=== PATIENT | male | born 1940 | race Caucasian/White ===

== ENCOUNTER → 2016-04-30 | Day surgery (SDC) | payer OTHER ==
[~2016-04-30] VITALS: Ht 175.3 cm; Wt 81.6 kg
[~2016-04-30] MED LIST: ACETAMINOPHEN-1 EAC3 PO; ACID REDUCER150 MG PO; AMOX-CLAV 875-1 EACH PO; ASPIRIN81 M4 PO; BREO ELLIPTA 21 EACH INH; CITALOPRAM HBR20 MG PO; COUMADIN4 M1 PO; COUMADIN6 M1 PO; FLOMAX0.4 M1 PO; GAS RELIEF125 MG PO; LEVOTHYROXINE50 MCG PO; LISINOPRIL20 M1 PO; MAPAP500 M3 PO; NAPROXEN500 M2 PO; OMEPRAZOLE20 M2 PO; SIMVASTATIN10 M1 PO; VITAMIN B-121000 MC3 PO; VITAMIN D35000 UNI1 PO; ZOCOR20 M1 PO
--- NOTE | 2016-04-30 13:47 | Operative Report ---
Operative/Inv Procedure Report Surgery Date: 04/30/16 Name of Procedure: Pacemaker generator replacement Pre-Operative Diagnosis: Third degree heart block pacemaker end-of-life Post-Operative Diagnosis: Same Estimated Blood Loss: scant Surgeon/Patent Prosecution Paralegal: RAFITA DESAI,CARLEY Leone JR Anesthesia: local monitored anesthesi Operative/Procedure Note Note: After placement monitoring lines the patient's left chest was prepped and draped in a sterile fashion. 1% lidocaine was used local anesthetic. Incision was made over the prior incision and carried down to the pacemaker pocket. The device was explanted. The atrial lead was interrogated. The patient was found to be in complete third -degree heart block. The atrial lead showed a pacing threshold of 0.5 V with an impedance of 472 ohms. P waves were measured at 4.1 mV. The ventricular lead showed an escape rhythm of 30 bpm. The pacing threshold was at 1.0 V with a current of 1.9 mA and impedance of 686 ohms. R waves were measured at 8.0 mV. The leads were this we then disconnected and immediately connected to an MRI compatible dual-chamber pacemaker Med[employer]onic model number [id number]. The pacemaker pocket was irrigated with antibiotic irrigation. It was closed in layers with a running Vicryl suture followed by running Vicryl subcuticular suture. It was dressed with a dry sterile dressing. The patient heart of the procedure well and was brought to the recovery room in stable condition. CC: RADHA DESAI,ENRIQUE Hall
== END ==
LOC: SDA 04-27 07:00 → STS 03:03 → EDSTATUS 07:00 → SDA 07:00 → STS 07:00
DX: Z45.018 Encounter for adjustment and management of other part of cardiac pacemaker (principal); I49.5 Sick sinus syndrome; I44.2 Atrioventricular block, complete; E78.00 Pure hypercholesterolemia, unspecified; F17.200 Nicotine dependence, unspecified, uncomplicated; Z79.01 Long term (current) use of anticoagulants
CPT/HCPCS: C1785; J0690; J1644; J2250

== ENCOUNTER 2016-05-16 17:48 | Emergency (ER) | payer OTHER ==
[~2016-05-16] VITALS: Ht 175.3 cm; Wt 81.6 kg
[~2016-05-16 17:48] MED LIST changes: -ACETAMINOPHEN-1 EAC3 PO; -AMOX-CLAV 875-1 EACH PO; -ASPIRIN81 M4 PO; -CITALOPRAM HBR20 MG PO; -COUMADIN6 M1 PO; -GAS RELIEF125 MG PO; -LISINOPRIL20 M1 PO; -MAPAP500 M3 PO; -NAPROXEN500 M2 PO; -OMEPRAZOLE20 M2 PO; -SIMVASTATIN10 M1 PO; -VITAMIN B-121000 MC3 PO; -VITAMIN D35000 UNI1 PO
--- NOTE | 2016-05-16 17:57 | ED AMS/SEIZURE/WEAK/DIZZY ---
History of Present Illness General Chief Complaint: Upper Extremity Problem Stated Complaint: BIBA ARM, SHOULDER PAIN Source: patient, EMS Exam Limitations: no limitations Vital Signs & Intake/Output Vital Signs & Intake/Output Vital Signs Date Time Temp Pulse Resp B/P Pulse O2 O2 Flow FiO2 Ox Delivery Rate 05/16 2108 96.7 70 18 124/65 95 Room Air 05/16 2035 121/68 95 Room Air 05/16 1932 63 20 126/56 95 Room Air 05/16 1833 Room Air 05/16 1819 90 20 90/53 93 Room Air 05/16 1805 97.5 68 18 101/54 98 Room Air ED Intake and Output 05/17 0000 05/16 1200 Intake Total 2000 Output Total Balance 2000 Intake, IV 2000 Patient 180 lb Weight Allergies Coded Allergies: No Known Allergies (06/08/15) Reconcile Medications Acetaminophen (Mapap Arthritis Pain) 650 MG TABLET.ER 1 TAB PO PRN PAIN ( Reported) Acetaminophen With Codeine (Acetaminophen-Cod #3 Tablet) 300 MG-30 MG TABLET 1 -2 TAB PO Q4H PRN PAIN (Reported) Cholecalciferol (Vitamin D3) (Vitamin D3) (Unknown Strength) CAPSULE (Unknown Dose) PO DAILY SUPPLEMENT (Reported) Citalopram Hydrobromide (Citalopram HBr) 20 MG TABLET 1 TAB PO DAILY MENTAL HEALTH (Reported) Cyanocobalamin (Vitamin B-12) (Unknown Strength) TABLET (Unknown Dose) PO DAILY SUPPLEMENT (Reported) Fluticasone/Vilanterol (Breo Ellipta 200-25 Mcg INH) (Unknown Strength) BLST.W.DEV (Unknown Dose) INH DAILY COPD (Reported) Levothyroxine Sodium 50 MCG TABLET 1 TAB PO DAILY THYROID (Reported) Lisinopril 20 MG TABLET 1 TAB PO DAILY BP (Reported) Ranitidine HCl (Acid [place]) 150 MG TABLET 1 TAB PO BID GERD (Reported) Simvastatin (Simvastatin*) 10 MG TABLET 1 TAB PO QPM CHOLESTEROL (Reported) Tamsulosin HCl (Flomax) 0.4 MG CAP.ER.24H 1 CAP PO DAILY BPH (Reported) Warfarin Sodium (Coumadin) 4 MG TABLET 1 TAB PO AD BLOOD THINNER (Reported) Warfarin Sodium (Coumadin) 6 MG TABLET 1 TAB PO AD BLOOD THINNER (Reported) Triage Nurses Notes Reviewed? yes Onset: Abrupt Duration: constant Timing: single episode today Severity: moderate Severity Numbers: 5 HPI: Patient is a 76-year-old male with a past medical history of pacemaker placement , DVT which patient states that he has an IVC filter, hypothyroidism, hyperlipidemia and hypertension, COPD every day smoker not on home O2 who states that patient did not go to bed until 8 AM this morning he woke up at 3 PM today and he was feeling tired after he woke up a which 30 minutes prior to arrival patient states that after only having a couple coffee today he was going upstairs to go back to bed in which he felt lightheaded and dizzy where he immediately sat down and felt nauseous and called EMS. Patient is compliant with his medications. Patient states that at rest he has no complaints. Denies any fevers chills headache blurred vision facial droop shortness of breath chest pain and arm pain jaw pain like swelling hemoptysis. Denies any loss of consciousness denies any room spinning sensation. Patient does state that he's been C/O "pinched nerve" for the last 10 days and a stiff neck. Denies any extremity paresthesia weakness or pain On arrival fingerstick glucose was noted 112 101/54 was noted on initial blood pressure (GABE AHUMADA) Past History Travel History Traveled to [place] past 21 day No Medical History Any Pertinent Medical History? see below for history Other Medical Hx: Hypothyroidism, hypertension, hyperlipidemia Surgical History Surgical History: non-contributory Psychosocial History What is your primary language Slovenian Family History Hx Contributory? No (GABE AHUMADA) Review of Systems Review of Systems Constitutional: Reports: no symptoms. EENTM: Reports: no symptoms. Respiratory: Reports: no symptoms. Cardiovascular: Reports: no symptoms. GI: Reports: no symptoms. Genitourinary: Reports: no symptoms. Musculoskeletal: Reports: see HPI, neck pain. Skin: Reports: no symptoms. Neurological/Psychological: Reports: no symptoms. Hematologic/Endocrine: Reports: no symptoms. Immunologic/Allergic: Reports: no symptoms. All Other Systems: Reviewed and Negative (GABE AHUMADA) Physical Exam Physical Exam General Appearance: no apparent distress, alert, comfortable Comments: Well-developed well-nourished person in no acute distress HEENT: Normal EENT exam, extraocular motion intact, no nystagmus. Pupils equally round and reactive to light and accommodation. Nose is atraumatic. External auditory canal and Tympanic membranes clear. Pharynx normal. No swelling or edema. Neck: Right lateral muscular tenderness noted, decreased active range of motion noted no central spinous tenderness Back: Nontender, no CVA tenderness. Cardiovascular: Regular rate and rhythms no murmurs rubs or gallops, normal JVP Respiratory: Chest nontender. No respiratory distress.breath sounds clear to auscultation bilaterally Abdomen: Soft, nontender nondistended, no appreciable organomegaly. Normal bowel sounds. No ascites Extremity: No edema, no calf tenderness to palpation, normal and equal pulses. Bilateral upper extremity myotomes dermatomes intact Neuro: Alert oriented x3, motor sensory normal, cranial nerves II through XII grossly intact. Negative Brudzinski and negative Kernig sign Skin: No appreciable rash on exposed skin, skin is warm and dry. Psych: Mood and affect is normal, memory and judgment is normal. Core Measures ACS in differential dx? No CVA/TIA Diagnosis: No Severe Sepsis Present: No Septic Shock Present: No (BRADY BISHOP,GABE) Progress Differential Diagnosis: arrythmia, alcohol intoxication, anemia, benign positional vertigo, CVA/stroke, dehydration, drug intoxication, encephalitis, electrolyte imbalance, GI bleed, hypoglycemia, hypoxia, intracranial Hem., intracranial mass/tumor, labrynthitis, meningitis, Meniere's disease, migraine BROWNLEE, multiple sclerosis, pneumonia, postural hypotension, presyncope, post- traumatic vertigo, sepsis, seizure disorder, subarachnoid Hem., UTI/pyelo, vertebrobasilar insuff Plan of Care: Orders Procedure Date/time Status Add-on Test (ER Only) 05/16 1905 Active TROPONIN LEVEL 05/16 1810 Complete MISTAKE 05/16 1757 Active Telemetry/Painter Structural Steel 05/16 175 Active THYROID STIMULATING HORMONE 05/16 1757 Complete PARTIAL THROMBOPLASTIN TIME 05/16 175 Complete PROTHROMBIN TIME 05/16 175 Complete MAGNESIUM 05/16 175 Complete FREE T4 05/16 175 Complete COMPREHENSIVE METABOLIC PANEL 05/16 1757 Complete CBC WITHOUT DIFFERENTIAL 05/16 1757 Complete EKG 05/16 1757 Active Laboratory Tests 05/16/16 181: Anion Gap 10, Estimated GFR > 60, BUN/Creatinine Ratio 27.3 H, Glucose 116 H, Calcium 9.1, Magnesium 1.7, Total Bilirubin 0.6, AST 24, ALT 32, Alkaline Phosphatase 71, Troponin I < 0.01, Total Protein 6.6, Albumin 3.6, Globulin 3.0, Albumin/Globulin Ratio 1.2, TSH 2.920, Free T4 1.29, PT 46.3 *H, INR 4.48 *H, APTT 42 H, CBC w Diff NO MAN DIFF REQ, RBC 4.21 L, MCV 88.3, MCH 29.0, RDW 14.7 H, MPV 7.6, Gran % 86.2 H, Lymphocytes % 7.8 L, Monocytes % 4.7, Eosinophils % 0.9, Basophils % 0.4, Absolute Granulocytes 6.8 H, Absolute Lymphocytes 0.6 L, Absolute Monocytes 0.4, Absolute Eosinophils 0.1, Absolute Basophils 0, PUBS MCHC 32.9 L Patient initially was in no apparent distress. Patient did have initial concerns of hypotension and orthostatic hypotension. Patient was administered 2 L of fluid bolus for concerns of dehydration and patient also was given a meal in the emergency room. Patient had unremarkable blood work and blood pressure did respond with fluids. Patient was evaluated again after this medication was administered and was able to walk to the emergency room bathroom and was asymptomatic and blood pressure was normotensive. Patient was strongly advised and instructed to begin eating and drinking properly and to begin getting plenty of sleep for his physical mental health. Patient was able tolerate by mouth on discharge. Discussed disposition plan with Dr. Pastrana who agrees. I discussed plan with family members and they also agree with plan (BRADY BISHOP,GABE) Diagnostic Imaging: Viewed by Me: Radiology Read. Radiology Impression: no acute abnormality, no fracture Initial ED EKG: normal intervals, ATRIAL PACED RHYTHM NOTED AT 63 BPM Comments: PATIENT: GABE WOOD PRESENT AGE: 76 PATIENT ACCOUNT NO: [id number] : 39 LOCATION: [facility] ORDERING PHYSICIAN: GABE BISHOP SERVICE DATE: 05/16/16 EXAM TYPE: RAD - XRY-PORTABLE CHEST XRAY EXAMINATION: XR PORTABLE CHEST CLINICAL INFORMATION: Dizziness. COMPARISON: Chest x-ray 04/29/2016. TECHNIQUE: Portable AP view of the chest was obtained. FINDINGS: The lungs are well-expanded and clear without focal airspace consolidation. No pleural effusions or pneumothoraces are identified. Cardiomediastinal contours are within normal limits. There is a left chest wall cardiac pacemaker with leads identified in the expected region of the right atrium and right ventricle. Soft tissues are unremarkable. No acute osseous abnormality is identified. IMPRESSION: No acute pulmonary process. (GABE AHUMADA) Departure Departure Disposition: HOME OR SELF CARE Condition: Stable Clinical Impression Primary Impression: Dizziness Secondary Impressions: Dehydration Referrals: KATJA DESAI,MARK Gonzalez (PCP/Family) Additional Instructions: As discussed please skip your next dose of Coumadin as her levels were high today in the emergency room. Please begin to drink plenty of water for hydration and begin EATING a well healthy balanced diet. Begin getting plenty of sleep. If symptoms worsen return to emergency room. Follow-up with your primary care doctor as YOU HAVE an appointment next week. Continue home medications otherwise Departure Forms: Customer Survey General Discharge Information (GABE AHUMADA) PA/HAM PASSER Co-Sign Statement Statement: ED Attending supervision documentation- [X] I saw and evaluated the patient. I have also reviewed all the pertinent lab results and diagnostic results. I agree with the findings and the plan of care as documented in the PA's/HAM PASSER's documentation. [] I have reviewed the ED Record and agree with the PA's/HAM PASSER's documentation. [] Additions or exceptions (if any) to the PAs/HAM PASSER's note and plan are summarized below: [] (KATHERYN DESAI,ARIADNA Olivo)
[2016-05-16 18:19] LABS: ABSOLUTE BASOPHIL COUNT 0 /CUMM (0.0-0.2); ABSOLUTE EOSINOPHIL COUNT 0.1 /CUMM (0.0-0.7); ABSOLUTE GRANULOCYTE CT 6.8 /CUMM (1.4-6.5); ABSOLUTE LYMPH COUNT 0.6 /CUMM (1.2-3.4); ABSOLUTE MONOCYTE COUNT 0.4 /CUMM (0.10-0.60); BASOPHIL % 0.4 % (0.0-2.0); EOSINOPHIL % 0.9 % (0-5); HEMATOCRIT 37.2 % (42-52); MEAN CORPUSCULAR HGB CONC 32.9 G/DL (33.0-37.0); MEAN CORPUSCULAR VOLUME 88.3 FL (80.0-94.0); MEAN PLATELET VOLUME 7.6 FL (7.4-10.4); PLATELET COUNT 213 /CUMM (130-400); RBC DISTRIBUTION WIDTH 14.7 % (11.5-14.5); RED BLOOD CELL CT 4.21 /CUMM (4.70-6.10); WHITE BLOOD CELL COUNT 7.9 /CUMM (4.8-10.8)
[2016-05-16 18:27] LABS: PTT 42 SEC (25-37)
[2016-05-16 18:33] LABS: PT 46.3 SEC (9.4-12.5)
[2016-05-16 18:36] LABS: GRANULOCYTE % 86.2 % (42.2-75.2)
[2016-05-16] MEDS ORDERED: COUMADIN6 M1 PO (18:48)
[2016-05-16] MEDS ORDERED: VITAMIN B-121000 MC3 PO (18:48)
[2016-05-16] MEDS ORDERED: VITAMIN D35000 UNI1 PO (18:48)
[2016-05-16] MEDS ORDERED: MAPAP500 M3 PO (18:49)
[2016-05-16] MEDS ORDERED: CITALOPRAM HBR20 MG PO (18:50)
[2016-05-16] MEDS ORDERED: ACETAMINOPHEN-1 EAC3 PO (18:51)
[2016-05-16] MEDS ORDERED: SIMVASTATIN10 M1 PO (18:52)
[2016-05-16] MEDS ORDERED: GAS RELIEF125 MG PO (18:53)
--- NOTE | 2016-05-16 20:18 | RADIOLOGY REPORT ---
EXAMINATION: XR PORTABLE CHEST CLINICAL INFORMATION: Dizziness. COMPARISON: Chest x-ray 04/29/2016. TECHNIQUE: Portable AP view of the chest was obtained. FINDINGS: The lungs are well-expanded and clear without focal airspace consolidation. No pleural effusions or pneumothoraces are identified. Cardiomediastinal contours are within normal limits. There is a left chest wall cardiac pacemaker with leads identified in the expected region of the right atrium and right ventricle. Soft tissues are unremarkable. No acute osseous abnormality is identified. IMPRESSION: No acute pulmonary process.
[2016-05-16 21:09] VITALS: BP 124/65
== END 2016-05-16 21:45 ==
LOC: ERH 17:48
PROVIDERS: Physician Assistant
DX: E86.0 Dehydration (principal); Z79.01 Long term (current) use of anticoagulants
CPT/HCPCS: 93005; 93010; 96360

== ENCOUNTER 2016-06-15 09:59 | Inpatient (IN) | payer OTHER ==
[~2016-06-15] VITALS: Ht 175.3 cm; Wt 81.0 kg
[~2016-06-15 09:59] MED LIST changes: +ACETAMINOPHEN-1 EAC3 PO; +CITALOPRAM HBR20 MG PO; +COUMADIN6 M1 PO; +GAS RELIEF125 MG PO; +MAPAP500 M3 PO; +SIMVASTATIN10 M1 PO; +VITAMIN B-121000 MC3 PO; +VITAMIN D35000 UNI1 PO
--- NOTE | 2016-06-15 10:01 | ED GENERAL ADULT ---
See Addendum History of Present Illness General Chief Complaint: General Adult Stated Complaint: BIBA GEN WEAKNESS Source: patient, family Exam Limitations: poor historian Vital Signs & Intake/Output Vital Signs & Intake/Output Vital Signs Date Time Temp Pulse Resp B/P Pulse O2 O2 Flow FiO2 Ox Delivery Rate 06/15 2052 93 Nasal 2.0L Cannula 06/16 2019 97.0 83 20 148/82 93 Nasal 2.0L Cannula 06/15 1926 99.6 81 20 131/62 94 Nasal 2.0L Cannula 06/15 1820 80 22 145/68 93 Nasal 2.0L Cannula 06/15 1602 98.9 79 18 141/68 92 Room Air 06/15 1357 98.7 85 20 131/61 93 Nasal 2.0L Cannula 06/15 1108 97.8 74 18 134/70 96 Room Air 06/15 1023 96 Room Air 06/15 1005 98.0 77 20 132/65 96 Room Air Allergies Coded Allergies: No Known Allergies (06/08/15) Reconcile Medications Acetaminophen (Mapap) 500 MG TABLET 2 TAB PO Q6-PRN PRN PAIN (Reported) Cholecalciferol (Vitamin D3) (Vitamin D3) 5,000 UNIT TABLET 1 TAB PO DAILY SUPPLEMENT (Reported) Citalopram Hydrobromide (Citalopram HBr) 20 MG TABLET 1 TAB PO DAILY MENTAL HEALTH (Reported) Cyanocobalamin (Vitamin B-12) 1,000 MCG TABLET 1 TAB PO DAILY SUPPLEMENT ( Reported) Fluticasone/Vilanterol (Breo Ellipta 200-25 Mcg INH) (Unknown Strength) BLST.W.DEV (Unknown Dose) INH DAILY COPD (Reported) Levothyroxine Sodium 50 MCG TABLET 1 TAB PO DAILY AC THYROID (Reported) Lisinopril 20 MG TABLET 1 TAB PO DAILY BP (Reported) Ranitidine HCl (Acid Coffee Host) 150 MG TABLET 1 TAB PO BID GERD (Reported) Simvastatin (Simvastatin*) 10 MG TABLET 1 TAB PO QPM CHOLESTEROL (Reported) Tamsulosin HCl (Flomax) 0.4 MG CAP.ER.24H 1 CAP PO DAILY BPH (Reported) Warfarin Sodium (Coumadin) 4 MG TABLET 1 TAB PO AD BLOOD THINNER (Reported) Triage Nurses Notes Reviewed? yes Onset: Abrupt Duration: day(s): Timing: recent history HPI: 06/15/16 2 PM 76-year-old man presents to the emergency department complaining of severe bilateral groin pain The patient states he has right sided groin pain that is worse than the left. He also admits to severe weakness and chills and occasional cough. The onset of the symptoms have been abrupt, the duration has been several days, the severity is significant as his symptoms required him to come to the emergency department for care. He has a past medical history of COPD, DVT, status post vena cava filter. He has been intolerant from anticoagulants in the past. He has a history of prostate cancer. Status post radiation January through March 2016. He has peripheral artery disease and is status post bilateral femoropopliteal bypass right 2004 according to the patient's . Past History Travel History Traveled to [place] past 21 day No Medical History Any Pertinent Medical History? see below for history Neurological: NONE EENT: NONE Cardiovascular: CAD, hypertension, hyperlipidemia, myocardial infarction, PPM Respiratory: COPD Gastrointestinal: GERD Hepatic: NONE Renal: NONE Musculoskeletal: osteoarthritis Psychiatric: NONE Endocrine: hyperthyroidism Blood Disorders: NONE Cancer(s): prostate cancer Other Medical Hx: Hypothyroidism, hypertension, hyperlipidemia Surgical History Surgical History: non-contributory Psychosocial History What is your primary language Occitan Family History Hx Contributory? No Review of Systems Review of Systems Constitutional: Reports: fever. EENTM: Denies: visual changes. Respiratory: Reports: cough. Denies: short of breath. Cardiovascular: Denies: chest pain. GI: Denies: abdominal pain. Genitourinary: Reports: no symptoms. Musculoskeletal: Reports: no symptoms. Skin: Reports: no symptoms. Neurological/Psychological: Reports: no symptoms. Hematologic/Endocrine: Denies: bleeding. Physical Exam Physical Exam General Appearance: well developed/nourished ( ), alert, awake, anxious, moderate distress Head: atraumatic, normal appearance Eyes: Bilateral: normal appearance, PERRL, EOMI. Ears, Nose, Throat: normal pharynx, normal ENT inspection Neck: normal inspection, supple, full range of motion Respiratory: chest non-tender, decreased breath sounds Cardiovascular: regular rate/rhythm Peripheral Pulses: 4+ dorsalis pedis (R), 4+ dorsalis pedis (L) Gastrointestinal: soft, non-tender Back: normal range of motion Extremities: swelling, tenderness Neurologic/Psych: no motor/sensory deficits, awake, alert, oriented x 3 Skin: intact, normal color, warm/dry Core Measures ACS in differential dx? Yes ASA ordered for poss ACS? no chest pain, patient with recent intracranial bleed, on Coumadin, troponin trending downward. These reasons aspirin was not given. CVA/TIA Diagnosis: No Severe Sepsis Present: No Septic Shock Present: No Progress Differential Diagnoses I considered the following diagnoses in my evaluation of the patient: [Pneumonia , sepsis, DVT, peripheral vascular disease, acute arterial occlusion] Plan of Care: Orders Procedure Date/time Status Heart Healthy Diet 06/16 B Active Lab Add-on Test 06/16 06 Active RHEUMATOID FACTOR 06/16 06 Active PROTHROMBIN TIME 06/16 0600 Active WESTERGREN SED RATE 06/16 0600 Active CREATINE PHOSPHOKINASE 06/16 0600 Active CBC WITHOUT DIFFERENTIAL 06/16 0600 Active BASIC ELECTROLYTES PLUS BUN&CR 06/16 0600 Active ANTINUCLEAR ANTIBODY 06/16 0600 Active Vital Signs 06/16 2051 Active Teach/Educate 06/16 2051 Active Pain Treatment and Response 06/16 2051 Active Nutritional Intake, Monitor 06/16 2051 Active Isolation 06/16 2051 Active Patient Care Conference 06/16 2051 Active Activity/Ambulation 06/16 2051 Active Pathway - chart 06/15 2021 Active Pathway - chart 06/15 193 Active House Staff 06/15 1932 Active Patient Data 06/15 1932 Active Code Status 06/15 1932 Active Patient Data 06/15 1800 Active Add-on Test (ER Only) 06/15 1741 Active Code Status 06/15 1730 Complete Admit to inpatient 06/15 1729 Active US-EXT BILAT VENOUS DOPPLER 06/15 1352 Active RAPID VIRAL INFLUENZA A 06/15 1349 Complete BLOOD CULTURE 06/15 1322 Active URINALYSIS 06/15 1222 Complete PROTHROMBIN TIME 06/15 1057 Complete PHOSPHORUS 06/15 1057 Active MAGNESIUM 06/15 1057 Active FERRITIN 06/15 1057 Active SERUM IRON 06/15 1057 Active CREATINE PHOSPHOKINASE 06/15 1057 Active TROPONIN LEVEL 06/15 1053 Active COMPREHENSIVE METABOLIC PANEL 06/15 1053 Active CBC WITHOUT DIFFERENTIAL 06/15 1053 Complete EKG 06/15 1016 Active Intake & Output 06/15 1011 Active Lab Add-on Test 06/15 UNK Active VTE Mechanical Prophylaxis 06/15 UNK Active CTA CHEST-PULMONARY EMBOLISM 06/15 UNK Active Current Medications Sig/Annabel Start time Last Medication Dose Stop Time Status Admin Sodium Chloride 1,000 ML Q13H 06/15 2214 UNVr (Normal Saline 0.9%) 06/16 111 Ibuprofen 600 MG Q6P PRN 06/15 2029 AC (Motrin) Oxycodone/ 1 TAB Q6P PRN 06/15 2029 AC Acetaminophen (Percocet) Laboratory Tests 06/15/16 1242: Urine Color YEL, Urine Clarity CLEAR, Urine pH 6.0, Ur Specific [place] 1.015, Urine Protein NEG, Urine Ketones NEG, Urine Nitrite NEG, Urine Bilirubin NEG, Urine Urobilinogen 0.2, Ur Leukocyte Esterase NEG, Ur Microscopic SEDIMENT EXAMINED, Urine RBC 3-5, Urine Mucus FEW, Urine Hemoglobin SMALL H, Urine Glucose NEG 06/15/16 1057: Anion Gap 10, Estimated GFR > 60, BUN/Creatinine Ratio 20.0, Glucose 107 H, Calcium 9.0, Phosphorus Pending, Magnesium Pending, Iron Pending, Ferritin Pending, Total Bilirubin 0.6, AST 56, ALT 74 H, Alkaline Phosphatase 68, Creatine Kinase Pending, Troponin I < 0.01, Total Protein 6.0 L, Albumin 3.0 L , Globulin 3.0, Albumin/Globulin Ratio 1.0 L, PT 46.1 *H, INR 4.46 *H, CBC w Diff NO MAN DIFF REQ, RBC 3.85 L, MCV 84.8, MCH 27.8, RDW 15.0 H, MPV 7.8, Gran % 82.7 H, Lymphocytes % 8.1 L, Monocytes % 8.4, Eosinophils % 0.5, Basophils % 0.3, Absolute Granulocytes 8.7 H, Absolute Lymphocytes 0.8 L, Absolute Monocytes 0.9 H, Absolute Eosinophils 0.1, Absolute Basophils 0, PUBS MCHC 32.7 L Microbiology 06/15 1607 BLOOD: Blood Culture - RECD 06/15 1607 BLOOD: Blood Culture - RECD 06/15 1421 NASOPHARYN: Influenza Virus A & B Rapid Smear - COMP Initial ED EKG: PACED RHYTHM Prior EKG: unchanged Departure Departure Disposition: STILL A PATIENT Condition: Stable Clinical Impression Primary Impression: DVT (deep venous thrombosis) Secondary Impressions: Pneumonia Referrals: MARK HIGHTOWER MD (PCP/Family) Departure Forms: Customer Survey General Discharge Information Admission Note Spoke With: CESAR NGUYEN MD Documentation of Exam: Documentation of any treatments & extenuating circumstances including Concerns Regarding Discharge (functional status, medication knowledge or non-compliance, living conditions, etc.) that warrant an admission rather than observation: [The patient has fever chills and inability to walk. His chest x-ray shows early infiltrate. He has an extensive right sided DVT. He is being admitted to the hospital for inability to walk, the need for vascular surgery consult, likely IV heparinization, IV antibiotics.] Critical Care Note Critical Care Note Critical Care Time: 30-74 min
--- NOTE | 2016-06-15 10:26 | NUR ---
76 YEAR OLD MALE TO ER VIA AMBULANCE FROM HIS HOME FOR COMPLAINTS OF INCREASED JOINT PAIN, PT COMPLAINS OF 10/10 SHARP APIN IN HIS SHOULDERS .ELBOWS KNEES. PT NOTED WITH MULTIPLE LAYERS OF CLOTHES ON , CHANGED BY STAFF AND PT SCREAMING IN PAIN THE WHOLE TIME , PT NOTED WITH EDEMA TO L HAND AND NOTED TO BE SOB WHEN STAFF MOVING HIM. PT STATES THAT HE HAS AN APPOINTMENT TOMORROW WITH VASCULAR BUT IT IS GOING TO SNOW AND IT WILL BE CANCELLED. STTAES THAT SHE WANTS HIM ADMITTED THAT HE IS IN TO MUCH PAIN AND THAT SHE HAS TO HELP HIM STAND. ALSO STATES THAT PT HAS BEEN URINATING EVERY TWO HOURS AND COMPLAINS OF GROIN PAIN.
--- NOTE | 2016-06-15 11:05 | NUR ---
URINAL PLACED , PT TRYING TO VOID AT THIS TIME, PT BOOSTED UP ON STRETCHER, VERY DIFFICULT TO TURN WITH OUT PT YELLING IN PAIN. REMAINS AT BEDSIDE. PT WAITING ON MD EVALUATION. PACED ON MONITOR. PACE MAKER TO L CHEST WALL
[2016-06-15 11:20] LABS: ABSOLUTE BASOPHIL COUNT 0 /CUMM (0.0-0.2); ABSOLUTE EOSINOPHIL COUNT 0.1 /CUMM (0.0-0.7); ABSOLUTE GRANULOCYTE CT 8.7 /CUMM (1.4-6.5); ABSOLUTE LYMPH COUNT 0.8 /CUMM (1.2-3.4); ABSOLUTE MONOCYTE COUNT 0.9 /CUMM (0.10-0.60); BASOPHIL % 0.3 % (0.0-2.0); EOSINOPHIL % 0.5 % (0-5); GRANULOCYTE % 82.7 % (42.2-75.2); HEMATOCRIT 32.7 % (42-52); MEAN CORPUSCULAR HGB 27.8 PG (27.0-31.0); MEAN CORPUSCULAR HGB CONC 32.7 G/DL (33.0-37.0); MEAN CORPUSCULAR VOLUME 84.8 FL (80.0-94.0); MEAN PLATELET VOLUME 7.8 FL (7.4-10.4); PLATELET COUNT 321 /CUMM (130-400); RED BLOOD CELL CT 3.85 /CUMM (4.70-6.10); WHITE BLOOD CELL COUNT 10.5 /CUMM (4.8-10.8)
--- NOTE | 2016-06-15 12:43 | NUR ---
URINE TRIO SENT TO THE LAB
--- NOTE | 2016-06-15 12:45 | NUR ---
PT NOTED TO BE SLEEPING AT THIS TIME, REGULAR RESP RATE NOTED .
--- NOTE | 2016-06-15 13:58 | NUR ---
PT RESTING ON STRETCHER, AWARE THAT HE IS GOING TO BE ADMITTED, O2 SAT 89 % ON RA, PLACED ON 2L VIA NC AND SATURATION INCREASED TO 93 % . PT DENIES PAIN WHEN HE IS NOT MOVING. PROVIDED WITH BLANKETS FOR COMPLAINTS OF FEELING COLD, AFEBRILE TEMP 98.7. SPOUSE REMAINS AT BEDSIDE
--- NOTE | 2016-06-15 14:24 | NUR ---
FLU SWAB SENT, PT TO CT SCAN AT THIS TIME
--- NOTE | 2016-06-15 14:46 | NUR ---
PT TO US VIA STRETCHER
--- NOTE | 2016-06-15 15:15 | NUR ---
REPORT RECIEVED FROM ARMIN LAGUNAS. PT OFF UNIT IN ULTRASOUND
--- NOTE | 2016-06-15 15:20 | RADIOLOGY REPORT ---
EXAMINATION: XR PORTABLE CHEST CLINICAL INFORMATION: Weakness. Rule out pneumonia. COMPARISON: Chest radiograph dated 04/29/2016. TECHNIQUE: Portable AP view of the chest was obtained. FINDINGS: The left chest wall pacemaker leads are stable in position. The cardiac silhouette is unchanged in size and configuration. There is uncoiling and atherosclerotic calcification of the thoracic aorta. The left lung is clear. There is patchy airspace opacity within the right lower lung. Developing pneumonia cannot be excluded. No pneumothorax or pleural effusion. IMPRESSION: Right lower lung patchy airspace opacities. Developing pneumonia cannot be excluded.
--- NOTE | 2016-06-15 15:37 | NUR ---
PT RETURNED FROM ULTRASOUND. AWAKE, ALERT. USING URINAL
--- NOTE | 2016-06-15 16:09 | CT SCAN REPORT ---
EXAMINATION: CT ABDOMEN AND PELVIS WITH CONTRAST CLINICAL INFORMATION: Severe pelvic pain. Prostate cancer. COMPARISON: None TECHNIQUE: Multidetector volumetric imaging was performed of the abdomen and pelvis before and after the IV administration of 95 mL of Optiray 320 intravenous contrast. Sagittal and coronal reformatted images were obtained on the technologist's workstation. DLP: 589.89 mGy-cm FINDINGS: LUNG BASES: Bibasilar airspace disease at the dependent lung of dependent atelectasis. Pacemaker lead at base of right ventricle. Vascular wall calcifications of the aorta. LIVER, GALLBLADDER, AND BILIARY TREE: The liver is normal in size, shape, and attenuation. No focal hepatic lesion or biliary ductal dilatation is present. The gallbladder is unremarkable with no evidence of radiopaque gallstones, gallbladder wall thickening, or obvious pericholecystic inflammatory changes. PANCREAS: Unremarkable. SPLEEN: Unremarkable. ADRENAL GLANDS: Unremarkable. KIDNEYS AND URETERS: 7 mm cortical cyst upper pole of the left kidney. 8 mm pedunculated cortical cyst at the anterior pole of the left kidney. No renal or ureteral calculi. No hydronephrosis. BLADDER: Unremarkable. GASTROINTESTINAL TRACT: Diverticulosis of the left colon and sigmoid. No diverticulitis. No bowel wall thickening or edema. Moderate to large volume of stool throughout the colon. The appendix is normal. Small bowel loops are unremarkable. ABDOMINAL WALL: No significant hernia is appreciated. LYMPH NODES: Normal. VASCULAR: Atherosclerotic vascular wall calcifications throughout the abdomen and pelvis. Vascular stent in the right and left common iliac arteries. No aneurysm. IVC filter present. PELVIC VISCERA: Prostate measures 4.3 cm transverse. OSSEOUS STRUCTURES: Multilevel degenerative change of the spine. Disc height narrowing, endplate spurs and facet joint arthrosis. Vacuum disc phenomenon at L4-L5 and L5-S1. Status post bilateral laminectomy L4-L5 disc levels. IMPRESSION: No acute abnormality CT scan abdomen and pelvis.
--- NOTE | 2016-06-15 18:03 | History & Physical ---
SENIA BLANK 06/15/16 1802: General Information and HPI MD Statement: I have seen and personally examined GABE MARMOLEJO SR and documented this H&P. The patient is a 76 year old M who presented with a patient stated chief complaint of [lower extremity weakness, unsteady gait and leg pain]. Source of Information: patient, family Exam Limitations: no limitations History of Present Illness: Mr Marmolejo is a 76-year-old gentleman with a PMH of third-degree AV block/PP p.m. , DVT and RL E (2004), IVC filter placement, COPD, ANDREY not on CPAP, HTN, HLD, PVD S/PA bilateral femoropopliteal bypass (2004), endarterectomy on right common femoral artery, prostate CA S/B radiation in March 2016 and tobacco use > 6 years who presents with complaints of 3-4 day duration lower extremity weakness, gait instability and leg cramping. Symptoms started 3-4 days ago with what he describes as intermittent stabbing sensation on the medial aspect of both upper thighs, L>R, occasional radiation down both legs, associated right calf tenderness. No relief provided with Tylenol. Family members report noticeable lower extremity weakness and difficulty with ambulation especially walking up stairs. He did suffer a mechanical fall 2 weeks ago with trauma to the right forehead and no preceding LOC, dizziness, palpitations or shortness of breath. Patient does endorse intermittent episodes of sweats and chills but denies any fever. He also reports mild productive cough with clear sputum but denies any exertional shortness of breath, chest pain, yellow sputum, exposure to sick contacts. ROS: He denies any numbness or bruising in his lower extremities. ADDITIONAL INFORMATION PROVIDED BY PATIENTS : Batteries in PPM in april 2016, pt was off coumadin briefly. Allergies/Medications Allergies: Coded Allergies: No Known Allergies (06/08/15) Home Med list Acetaminophen (Mapap) 500 MG TABLET 2 TAB PO Q6-PRN PRN PAIN (Reported) Cholecalciferol (Vitamin D3) (Vitamin D3) 5,000 UNIT TABLET 1 TAB PO DAILY SUPPLEMENT (Reported) Citalopram Hydrobromide (Citalopram HBr) 20 MG TABLET 1 TAB PO DAILY MENTAL HEALTH (Reported) Cyanocobalamin (Vitamin B-12) 1,000 MCG TABLET 2 TAB PO DAILY Supplement ( Reported) Fluticasone/Vilanterol (Breo Ellipta 200-25 Mcg INH) (Unknown Strength) BLST.W.DEV (Unknown Dose) INH DAILY COPD (Reported) Levothyroxine Sodium 50 MCG TABLET 1 TAB PO DAILY AC THYROID (Reported) Ranitidine HCl (Acid Forestry Scientist) 150 MG TABLET 1 TAB PO BID GERD (Reported) Simvastatin (Simvastatin*) 10 MG TABLET 1 TAB PO QPM CHOLESTEROL (Reported) Tamsulosin HCl (Flomax) 0.4 MG CAP.ER.24H 1 CAP PO DAILY BPH (Reported) Warfarin Sodium (Coumadin) 4 MG TABLET 1 TAB PO AD BLOOD THINNER (Reported) Past History Travel History Traveled to [place] past 21 day No Medical History Neurological: NONE EENT: NONE Cardiovascular: CAD, hypertension, hyperlipidemia, myocardial infarction, PPM Respiratory: COPD Gastrointestinal: GERD Hepatic: NONE Renal: NONE Musculoskeletal: osteoarthritis Psychiatric: NONE Endocrine: hyperthyroidism Blood Disorders: NONE Cancer(s): prostate cancer Other Medical Hx: Hypothyroidism, hypertension, hyperlipidemia History of CDIFF: No Isolation History: Standard Surgical History Surgical History: non-contributory Past Family/Social History Psychosocial History ETOH Use: denies use Illicit Drug Use: denies illicit drug use Review of Systems Review of Systems Constitutional: Reports: see HPI. EENTM: Reports: no symptoms. Cardiovascular: Reports: no symptoms. Respiratory: Reports: see HPI. GI: Reports: no symptoms. Genitourinary: Reports: no symptoms. Musculoskeletal: Reports: see HPI. Skin: Reports: no symptoms. Neurological/Psychological: Reports: see HPI. Hematologic/Endocrine: Reports: no symptoms. Exam & Diagnostic Data Last 24 Hrs of Vital Signs/I&O Vital Signs Date Time Temp Pulse Resp B/P Pulse O2 O2 Flow FiO2 Ox Delivery Rate 06/15 1820 80 22 145/68 93 Nasal 2.0L Cannula 06/15 1602 98.9 79 18 141/68 92 Room Air 06/15 1357 98.7 85 20 131/61 93 Nasal 2.0L Cannula 06/15 1108 97.8 74 18 134/70 96 Room Air 06/15 1023 96 Room Air 06/15 1005 98.0 77 20 132/65 96 Room Air Intake & Output 06/15 1600 06/15 0800 06/15 0000 Intake Total 0 Output Total 200 Balance -200 Intake, Oral 0 Output, Urine 200 Patient 185 lb Weight Physical Exam General Appearance Alert, Cooperative, intermittent episodes of discomfort in his legs Skin slight bruise on the right forehead., permanent pacemaker located under skin on left chest wall HEENT EOMI, Mucous Membr. moist/pink Cardiovascular Regular Rate, Normal S1, Normal S2 Lungs Clear to Auscultation, Normal Air Movement Abdomen Normal Bowel Sounds, Soft, No Tenderness Neurological Normal Speech, Normal Tone Extremities Normal Pulses, right calf appears slightly larger than the left. Exquisite tenderness elicited with plantar flexion of the right foot. Last 24 Hrs of Labs/Lizandro: Laboratory Tests 06/15/16 1242: Urine Color YEL, Urine Clarity CLEAR, Urine pH 6.0, Ur Specific [place] 1.015, Urine Protein NEG, Urine Ketones NEG, Urine Nitrite NEG, Urine Bilirubin NEG, Urine Urobilinogen 0.2, Ur Leukocyte Esterase NEG, Ur Microscopic SEDIMENT EXAMINED, Urine RBC 3-5, Urine Mucus FEW, Urine Hemoglobin SMALL H, Urine Glucose NEG 06/15/16 1057: Anion Gap 10, Estimated GFR > 60, BUN/Creatinine Ratio 20.0, Glucose 107 H, Calcium 9.0, Total Bilirubin 0.6, AST 56, ALT 74 H, Alkaline Phosphatase 68, Troponin I < 0.01, Total Protein 6.0 L, Albumin 3.0 L, Globulin 3.0, Albumin/ Globulin Ratio 1.0 L, PT 46.1 *H, INR 4.46 *H, CBC w Diff NO MAN DIFF REQ, RBC 3.85 L, MCV 84.8, MCH 27.8, RDW 15.0 H, MPV 7.8, Gran % 82.7 H, Lymphocytes % 8.1 L, Monocytes % 8.4, Eosinophils % 0.5, Basophils % 0.3, Absolute Granulocytes 8.7 H, Absolute Lymphocytes 0.8 L, Absolute Monocytes 0.9 H, Absolute Eosinophils 0.1, Absolute Basophils 0, PUBS MCHC 32.7 L Microbiology 06/15 1607 BLOOD: Blood Culture - RECD 06/15 160 BLOOD: Blood Culture - RECD 06/15 1421 NASOPHARYN: Influenza Virus A & B Rapid Smear - COMP Diagnostic Data EKG Results Atrial sensed ventricular paced complexes. Nonspecific IVCD with LAD. LVH with secondary repolarization abnormalities. MD interval 164. QTC 493 CXR Results Right lower lung patchy airspace opacities. Developing pneumonia cannot be excluded. Other Results CT abdomen pelvis: No acute abnormality CT scan abdomen and pelvis. Assessment/Plan Assessment: 76-year-old gentleman with a PMH of third-degree AV block/PP p.m., DVT and RL E (2004), IVC filter placement, COPD, ANDREY not on CPAP, HTN, HLD, PVD S/PA bilateral femoropopliteal bypass (2004), endarterectomy on right common femoral artery, prostate CA S/B radiation in March 2016 and tobacco use > 6 years who presents with complaints of 3-4 day duration lower extremity weakness, gait instability and leg cramping. VS: BP 132/65, HR 77, RR 20, SPO2 96% on 2 LNC, T 98.0 Pertinent labs: H&H 10.7/32.7, sodium 134, potassium 4.6, BUN/CR 14/0.8 INR: 4.46 AST/ALT: 56/74 Ultrasound lower extremity bilateral: DVT affecting a collateral or duplicated femoral vein in the mid to distal thigh. Also there is a nonocclusive thrombus along the posterior wall of the right common femoral vein. No evidence of DVT in the left lower extremity. Within the left popliteal fossa there is a 3.31.61.2 cm Chow's cyst noted. Problem list: 1. History of DVT in lower extremity 2. Bilateral LE pain 3. Chest x-ray with right lower lobe opacification 4. Supratherapeutic INR 5. Anemia 6. Bilateral upper extremity digit swelling and tenderness 7. History of IVC filter 8. COPD/ANDREY 9. Tobacco dependence 10. Peripheral vascular disease Plan: * Admit to general medicine floor * CXR findings of right lower lobe opacity: Patient currently does not appear to have a clinical picture in line with pneumonia. DDX includes PE. Will obtain CTA of chest to better assess lung parenchyma. We'll hold off ceftriaxone and azithromycin at this time * Lower extremity discomfort: DDX includes claudication in the setting of DVT. Percocet for analgesia, aspirin 1, vascular surgery to see the patient in the morning. Follow-up with Dr. Pablo. Follow-up magnesium and phosphorus levels. Follow-up antiphospholipid level in the a.m. * Supratherapeutic INR: 4.46. We'll hold Coumadin today with target INR between 2 and 3 * Follow-up iron studies for anemia. Will supplement with ferrous sulfate if iron deficient * BAR, rheumatoid factor, ESR, CPK in the a.m. in the setting of bilateral hand swelling and pain lasting 2 hours of morning year, lower extremity weakness of sudden onset. DDX PMR * TRCs, breo ellipta * NPO in the a.m. in anticipation of possible vascular intervention. Normal saline at 75 mL an hour * Heart healthy diet * DVT prophylaxis: Coumadin * GI prophylaxis: Ranitidine 150 mg BID * Synthroid 50mcg As Ranked By This Provider Problem List: 1. DVT (deep venous thrombosis) 2. Leg pain 3. Pneumonia 4. Anemia 5. Supratherapeutic INR 6. Tenderness of joint Core Measures/Miscellaneous Acute Coronary Syndrome ACS Diagnosis: No Cerebrovascular Accident CVA/TIA Diagnosis: No Congestive Heart Failure CHF Diagnosis: No Venous Thromboembolism VTE Risk Factors: Acute medical illness, Age > 40 No [facility] VTE prophylaxis d/t: No contraindications No VTE Pharm Prophylaxis d/t: No contraindications VTE Diagnosis: Yes VTE Type: Deep Venous Thrombosis VTE Confirmed by (Test): EXT BILATERAL VENOUS DOPP Severe Sepsis Severe Sepsis Present: No Septic Shock Septic Shock Present: No Miscellaneous Documentation Attending Case Discussed With: CESAR NGUYEN MD Primary Care Physician: MARK HIGHTOWER MD A Patient sees these Specialists NA Level of Patient Care: General Medicine Resident Review Statement Resident Statement: examined this patient, discussed with underwriting internship, agreed with underwriting internship, discussed with family, reviewed EMR data (avail), discussed with case mgmt, reviewed images VERN,AARRAVINDRAEse 06/16/16 0718: Attending MD Review Statement Attending Statement Attending MD Statement: examined this patient, discuss w/resident/PA/BUILDINGS AND GROUNDS DIRECTOR, agreed w/resident/PA/BUILDINGS AND GROUNDS DIRECTOR, reviewed EMR data (avail), reviewed images, amended to note Attending Assessment/Plan: CC: Multiple joints pains, bilateral lower extremity pain, difficulty ambulating PMH: Hypothyroidism, third-degree AV block S/P pacemaker, DVT S/P IVC filter, on warfarin, COPD, ANDREY, HTN, HLD, PVD S/P bilateral femoropopliteal bypass, right CEA, prostate cancer S/P radiation. Patient came with bilateral lower extremity weakness, difficulty walking, leg cramps (in things). Multiple joint pains and swelling. Patient has multiple vague complaints, but mainly difficult to ambulate since last 2 weeks, with gait instability. Patient has some productive cough at baseline which is not worsened recently, white colored sputum, no fever, no chills. Vitals: Afebrile, pulse, RRR, blood pressure, O2 saturation within acceptable range. On examination a O 3, no acute distress, no JVD, neck supple, mucosa moist, no lymphadenopathy, CVS: S1-S2, RS: Diffuse crackles throughout the lung ramírez. Abdomen: Soft, NT, NT, bowel sounds present. Genital examination: No scrotal edema, redness or tenderness. Bilateral upper extremity strength 4+/5 , bilateral lower extremity strength 3/5, limitations secondary to pain in proximal muscle group, sensation intact , pedal edema around ankle. Multiple small joint arthritis left hand, Labs: Hemoglobin 10.7, WBC 10.5, neutrophils 82.7%, INR 4.46, BMP unremarkable, ALT 74, total protein 6.0, UA positive for hemoglobin, influenza negative. CXR:Right lower lung patchy airspace opacities. Developing pneumonia cannot be excluded. CT abdomen and pelvis with IV contrast: -Right lower lung patchy airspace opacities. Developing pneumonia cannot be excluded. - Atherosclerotic vascular wall calcifications throughout the abdomen and pelvis. Vascular stent in the right and left common iliac arteries. No aneurysm. IVC filter present. -Multilevel degenerative change of the spine. Disc height narrowing, endplate spurs and facet joint arthrosis. Vacuum disc phenomenon at L4-L5 and L5-S1. Status post bilateral laminectomy L4-L5 disc levels. DVT Doppler: 1. Deep vein thrombosis affecting a collateral or duplicated femoral vein in the mid to distal thigh. Also, there is nonocclusive thrombus along the posterior wall of the right common femoral vein. 2. No evidence of deep vein thrombosis in the left lower extremity. 3. Within the left popliteal fossa, a 3.3 x 1.6 x 1.2 cm Chow's cyst is noted. CTA chest: 1. No pulmonary embolism. 2. Diffuse bronchial wall thickening with associated groundglass opacities. Areas of septal thickening with more prominent groundglass opacities at the lung bases. Considerations include fluid overload with mild interstitial and alveolar edema. Infectious/inflammatory processes are also a possibility. 3. Multiple stable pulmonary nodule suggesting a benign etiology. A and P #1 bilateral lower extremity pain and weakness : ? Vascular versus urologic correlation secondary to degenerative disease and spine, patient has extensive vascular calcification with a history of vascular procedure in the past, vascular surgeon was informed from ER, continue consultation, OT PT evaluation, obtain magnesium, phosphorus, CPK, ESR, adequate pain control. #2 DVT : Patient currently on warfarin, INR supratherapeutic, still patient has acute DVT, ?failure of warfarin, DC warfarin, continue heparin, patient has IVC filter, PE ruled out with CTA, ? Lovenox on discharge, #3 CTA shows prominent groundglass opacities, bilateral diffuse on auscultation, patient has pedal edema, patient does not have any fever, worsening of cough. Has some leukocytosis with neutrophilia, not certain if this is pneumonia, watch off antibiotics, obtain 2-D echocardiogram in morning.
--- NOTE | 2016-06-15 18:19 | NUR ---
DTR AT BEDSIDE. PT SET UP TO EAT DINNER
[2016-06-15 18:25] LABS: PT 46.1 SEC (9.4-12.5)
--- NOTE | 2016-06-15 18:44 | NUR ---
PT GOING TO ROOM 210-1.
--- NOTE | 2016-06-15 18:57 | NUR ---
CRITICAL TEST RESULTS [id number] GABE WOOD SR 76 M TESTS AND RESULTS: INR 4.6 Results received and read back by: JESSICA AHN Results received date and time: 06/15/16 3847 The following provider was notified of the results, and read the results back: DR BLANK Notified date and time: 06/15/16 at 1640
--- NOTE | 2016-06-15 18:57 | NUR ---
DR BLANK AT BEDSIDE TO SEE PT
--- NOTE | 2016-06-15 19:25 | NUR ---
PT LOGROLLED FOR PERICARE. SMALL BM PRESENT. NO SKIN BREAKDOWN OR REDNESS ON BUTTOCKS/SACRUM.
[2016-06-15 20:20] VITALS: BP 148/82
--- NOTE | 2016-06-15 22:16 | ULTRASOUND REPORT ---
EXAMINATION: US TRIPLEX LOWER EXTREMITY, BILATERAL CLINICAL INFORMATION: Leg pain and swelling. Evaluate for deep vein thrombosis. COMPARISON: None TECHNIQUE: Color-flow triplex imaging with spectral analysis and compression Doppler were performed on the bilateral lower extremities. FINDINGS: RIGHT: There is nonocclusive thrombus along the posterior wall the common femoral vein. The right femoral vein appears duplicated. One of the duplicated veins does not completely compress, suggestive of nonocclusive thrombus. Also, in the mid to-distal thigh, a clotted duplicated or collateral femoral vein shows no significant flow on the color Doppler images. The popliteal vein and tibioperoneal trunk are patent. No deep vein thrombosis identified in the calf. No Chow's cyst. LEFT: Common femoral vein is patent. Within the proximal thigh, the visualized profunda femoris vein is patent and the examined greater saphenous vein and saphenofemoral junction are normal. The superficial femoral vein is compressible in the proximal, mid and distal thigh. The popliteal vein is patent to the level of the trifurcation. The visualized calf veins are unremarkable. Within the popliteal fossa, there is a 3.3 x 1.6 x 1.2 cm Chow's cyst.. IMPRESSION: 1. Deep vein thrombosis affecting a collateral or duplicated femoral vein in the mid to distal thigh. Also, there is nonocclusive thrombus along the posterior wall of the right common femoral vein. 2. No evidence of deep vein thrombosis in the left lower extremity. 3. Within the left popliteal fossa, a 3.3 x 1.6 x 1.2 cm Chow's cyst is noted. The critical test result was discussed with Dr. Rodriguez at 3:40 pm it was ascertained that the content and the importance of the findings was understood at the time of the direct communication.
[2016-06-15 22:19] VITALS: BP 126/65
[2016-06-15] MEDS ORDERED: VITAMIN B-121000 MC3 PO (22:59)
--- NOTE | 2016-06-15 23:21 | CT SCAN REPORT ---
EXAMINATION: CT ANGIOGRAM OF THE CHEST WITH AND WITHOUT CONTRAST (CT PULMONARY ANGIOGRAM FOR PE) CLINICAL INFORMATION: DVT while on Coumadin. Chest x-ray showing right lower lobe density. COMPARISON: Chest radiograph from today. Abdominal CT from today. Chest CT from 06/17/2012 and 06/08/2013. TECHNIQUE: Prior to contrast administration, noncontrast localization images were obtained. Subsequently, multidetector volumetric imaging was performed from the thoracic inlet to below the diaphragms following the administration of 100 mL Optiray 350 intravenous contrast. No contrast reaction reported Sagittal, coronal, and MIP oblique sagittal reformatted images were obtained on the CT workstation, uploaded to PACS, and reviewed. Total exam dose-length product 554 mGy-cm FINDINGS: QUALITY OF STUDY/CONTRAST BOLUS: Satisfactory. PULMONARY ARTERIES: No central or segmental pulmonary emboli. THORACIC AORTA: No aneurysm or dissection. Mild atherosclerotic calcifications. LUNG: The central airways are patent. Minimal dependent secretions in the bilateral mainstem bronchi. Bilateral bronchial wall thickening is noted. There is mild centrilobular and paraseptal emphysema. Patchy areas of groundglass opacity are seen adjacent to the areas of bronchial wall thickening throughout both lungs. This is most prominent within the right middle lobe with associated mild septal thickening. This is also seen within both lower lobes. Dependent atelectasis seen bilaterally. This is similar to previous. There is a left lower lobe 0.6 cm nodule on series 2 image 338. This is unchanged since 2013 at least. Right middle lobe anterior calcified granuloma. Pleural-based 0.3 cm right upper lobe nodule on series 2 image 168 is unchanged. Posterior apical pleural calcifications are seen. Left apical 0.3 cm nodule on series 2 image 96 is stable. PLEURA: No pleural effusion or pneumothorax. Biapical pleural thickening with calcification. MEDIASTINUM: The heart is normal in size. Left chest wall pacer in place with leads terminating at the right atrium and right ventricle. No pericardial effusion. No mediastinal lymphadenopathy. No evidence of septal bowing or right heart strain. CHEST WALL/AXILLA: No axillary or internal mammary lymphadenopathy. OSSEOUS STRUCTURES: No acute or suspicious osseous abnormality. Multilevel degenerative changes in the spine. DISH. UPPER ABDOMEN: Unremarkable. No reflux of contrast into the hepatic veins to suggest elevated right heart pressures. IMPRESSION: 1. No pulmonary embolism. 2. Diffuse bronchial wall thickening with associated groundglass opacities. Areas of septal thickening with more prominent groundglass opacities at the lung bases. Considerations include fluid overload with mild interstitial and alveolar edema. Infectious/inflammatory processes are also a possibility. 3. Multiple stable pulmonary nodule suggesting a benign etiology. VTE: negative
--- NOTE | 2016-06-16 00:25 | NUR ---
NURSE NOTE: (LATE ENTRY) PT ARRIVED TO FLOOR FROM ED AROUND 2019, PT AAOX3, 2LNC. ORIENTED TO ROOM, FALL PX IN PLACE. VSS. PT IS SEVERE PAIN, AND MEDICATED APPRIOPRATELY. WILL CONTINUE TO MONITOR PT.
[2016-06-16 02:27] LABS: PTT 56 SEC (25-37)
[2016-06-16 07:05] VITALS: BP 125/60
--- NOTE | 2016-06-16 07:20 | Admission Certification ---
Admission Certification Certification Statement - As attending physician, I certify that at the time of - admission, based on clinical presentation, severity of - symptoms, need for further diagnostic testing and - therapeutic interventions, and risk of adverse outcomes - without in-hospital treatment, in my clinical assessment, - this patient requires an acute hospital stay for a minimum - of two nights or longer. I have also considered psychsocial - factors such as support system, advanced age, financial - issues, cognitive issues, and failed out-patient treatments, - past re-admission history, safety of patient, and lack of - compliance as applicable. Specific rationale supporting this admission is: Bilateral lower extremity weakness, DVT
--- NOTE | 2016-06-16 07:32 | PN- Housestaff ---
LEE LEY 06/16/16 0730: Subjective Follow-up For: - R LE DVT - GGO on Chest CT - Supratherapeutic INR Complaints: no complaints Subjective: Patient seen and examined at bedside. He has no active complaints. Is NPO for possible vascular intervention later today. Review of Systems Constitutional: Denies: chills, fever. EENTM: Denies: visual changes. Cardiovascular: Denies: chest pain, orthopena, palpitations, peripheral edema. Respiratory: Denies: cough, short of breath, sputum production. Gastrointestinal: Denies: abdominal pain, nausea, vomiting. Genitourinary: Reports: no symptoms. Neurological/Psychological: Denies: headache, numbness, unable to move lower ext, unable to move upper ext. Objective Last 24 Hrs of Vital Signs/I&O Vital Signs Date Time Temp Pulse Resp B/P Pulse O2 O2 Flow FiO2 Ox Delivery Rate 06/16 0705 97.4 67 18 125/60 98 Nasal 2.0L Cannula 06/15 2219 98.1 76 18 126/65 93 Nasal 2.0L Cannula 06/15 2053 93 Nasal 2.0L Cannula 06/15 2020 97.0 83 20 148/82 93 Nasal 2.0L Cannula 06/15 1926 99.6 81 20 131/62 94 Nasal 2.0L Cannula 06/15 1820 80 22 145/68 93 Nasal 2.0L Cannula 06/15 1602 98.9 79 18 141/68 92 Room Air 06/15 1357 98.7 85 20 131/61 93 Nasal 2.0L Cannula 06/15 1108 97.8 74 18 134/70 96 Room Air 06/15 1023 96 Room Air 06/15 1005 98.0 77 20 132/65 96 Room Air Intake & Output 06/16 0800 06/16 0000 06/15 1600 Intake Total 240 1370 0 Output Total 300 200 200 Balance -60 1170 -200 Intake, IV 120 1250 Intake, Oral 120 120 0 Output, Urine 300 200 200 Patient 180 lb 180 lb 185 lb Weight Physical Exam General Appearance: Alert, Oriented X3, Cooperative, No Acute Distress HEENT: Atraumatic, PERRLA, EOMI, Mucous Membr. moist/pink Neck: Supple, No JVD Cardiovascular: Regular Rate, Normal S1, Normal S2, No Murmurs Lungs: Clear to Auscultation, Normal Air Movement Abdomen: Normal Bowel Sounds, Soft, No Tenderness Neurological: Normal Speech, unable to lift lower extremities because of pain Extremities: No Edema Current Medications: Current Medications Sig/Annabel Start time Last Medication Dose Route Stop Time Status Admin Aspirin 81 MG ONCE ONE 06/15 2230 DC 06/16 PO 06/15 2231 0012 Atorvastatin Calcium 10 MG 1700 06/16 1700 AC PO Azithromycin 500 MG ONCE ONE 06/15 1745 DC 06/15 Dextrose/Water 250 ML IV 06/15 1844 1819 Budesonide/ 2 PUF BID 06/16 1000 AC Formoterol Fumarate INH Ceftriaxone Sodium 0 .STK-MED ONE 06/15 1742 DC .ROUTE Ceftriaxone Sodium 1,000 MG ONCE ONE 06/15 1730 DC 06/15 IV 06/15 1731 1805 Cholecalciferol 10,000 IU DAILY 06/16 1000 AC PO Citalopram 20 MG DAILY 06/16 1000 AC Hydrobromide PO Famotidine 20 MG BID 06/15 2253 AC PO Heparin Sodium/ 25,000 UNIT Q24H 06/16 0145 AC 06/16 Dextrose IV 0336 Dextrose/Water 500 ML Ibuprofen 600 MG Q6P PRN 06/15 2030 AC PO Levothyroxine Sodium 0.05 MG DAILY AC 06/16 0700 AC 06/16 PO 0535 Oxycodone/ 1 TAB Q6P PRN 06/15 2030 AC Acetaminophen PO Oxycodone/ 2 TAB Q6P PRN 06/15 2030 AC 06/15 Acetaminophen PO 2030 Sodium Chloride 1,000 ML Q13H 06/15 2215 DC IV 06/16 1114 Sodium Chloride 1,000 ML BOLUS ONE 06/15 1400 DC 06/15 IV 06/15 1559 1600 Tamsulosin HCl 0.4 MG DAILY 06/16 1000 AC PO Last 24 Hrs of Lab/Lizandro Results Last 24 Hrs of Labs/Mics: Laboratory Tests 06/16/16 0205: APTT 56 H 06/15/16 1242: Urine Color YEL, Urine Clarity CLEAR, Urine pH 6.0, Ur Specific [place] 1.015, Urine Protein NEG, Urine Ketones NEG, Urine Nitrite NEG, Urine Bilirubin NEG, Urine Urobilinogen 0.2, Ur Leukocyte Esterase NEG, Ur Microscopic SEDIMENT EXAMINED, Urine RBC 3-5, Urine Mucus FEW, Urine Hemoglobin SMALL H, Urine Glucose NEG 06/15/16 1057: Anion Gap 10, Estimated GFR > 60, BUN/Creatinine Ratio 20.0, Glucose 107 H, Calcium 9.0, Phosphorus 3.6, Magnesium 1.8, Iron 23 L, Ferritin 441.0, Total Bilirubin 0.6, AST 56, ALT 74 H, Alkaline Phosphatase 68, Creatine Kinase 38 L , Troponin I < 0.01, Jhj-Y-Rjfgvgmycut Pept 1050 H, Total Protein 6.0 L, Albumin 3.0 L, Globulin 3.0, Albumin/Globulin Ratio 1.0 L, 25-OH Vitamin D Total 34.3, PT 46.1 *H, INR 4.46 *H, CBC w Diff NO MAN DIFF REQ, RBC 3.85 L, MCV 84.8, MCH 27.8, RDW 15.0 H, MPV 7.8, Gran % 82.7 H, Lymphocytes % 8.1 L, Monocytes % 8.4, Eosinophils % 0.5, Basophils % 0.3, Absolute Granulocytes 8.7 H, Absolute Lymphocytes 0.8 L, Absolute Monocytes 0.9 H, Absolute Eosinophils 0.1, Absolute Basophils 0, PUBS MCHC 32.7 L Microbiology 06/15 1607 BLOOD: Blood Culture - RECD 06/15 1607 BLOOD: Blood Culture - RECD 06/15 1421 NASOPHARYN: Influenza Virus A & B Rapid Smear - COMP Orders Radiology Findings: SERVICE DATE: 06/15/16-1349 EXAM TYPE: RAD - XRY-PORTABLE CHEST XRAY FINDINGS: The left chest wall pacemaker leads are stable in position. The cardiac silhouette is unchanged in size and configuration. There is uncoiling and atherosclerotic calcification of the thoracic aorta. The left lung is clear. There is patchy airspace opacity within the right lower lung. Developing pneumonia cannot be excluded. No pneumothorax or pleural effusion. IMPRESSION: Right lower lung patchy airspace opacities. Developing pneumonia cannot be excluded. SERVICE DATE: 06/15/16- EXAM TYPE: CAT - CTA CHEST-PULMONARY EMBOLISM FINDINGS: QUALITY OF STUDY/CONTRAST BOLUS: Satisfactory. PULMONARY ARTERIES: No central or segmental pulmonary emboli. THORACIC AORTA: No aneurysm or dissection. Mild atherosclerotic calcifications. LUNG: The central airways are patent. Minimal dependent secretions in the bilateral mainstem bronchi. Bilateral bronchial wall thickening is noted. There is mild centrilobular and paraseptal emphysema. Patchy areas of groundglass opacity are seen adjacent to the areas of bronchial wall thickening throughout both lungs. This is most prominent within the right middle lobe with associated mild septal thickening. This is also seen within both lower lobes. Dependent atelectasis seen bilaterally. This is similar to previous. There is a left lower lobe 0.6 cm nodule on series 2 image 338. This is unchanged since 2013 at least. Right middle lobe anterior calcified granuloma. Pleural-based 0.3 cm right upper lobe nodule on series 2 image 168 is unchanged. Posterior apical pleural calcifications are seen. Left apical 0.3 cm nodule on series 2 image 96 is stable. PLEURA: No pleural effusion or pneumothorax. Biapical pleural thickening with calcification. MEDIASTINUM: The heart is normal in size. Left chest wall pacer in place with leads terminating at the right atrium and right ventricle. No pericardial effusion. No mediastinal lymphadenopathy. No evidence of septal bowing or right heart strain. CHEST WALL/AXILLA: No axillary or internal mammary lymphadenopathy. OSSEOUS STRUCTURES: No acute or suspicious osseous abnormality. Multilevel degenerative changes in the spine. DISH. UPPER ABDOMEN: Unremarkable. No reflux of contrast into the hepatic veins to suggest elevated right heart pressures. IMPRESSION: 1. No pulmonary embolism. 2. Diffuse bronchial wall thickening with associated groundglass opacities. Areas of septal thickening with more prominent groundglass opacities at the lung bases. Considerations include fluid overload with mild interstitial and alveolar edema. Infectious/inflammatory processes are also a possibility. 3. Multiple stable pulmonary nodule suggesting a benign etiology. VTE: negative SERVICE DATE: 06/15/16 EXAM TYPE: CAT - CT ABD & PELVIS W IV CONTRAST EXAMINATION: CT ABDOMEN AND PELVIS WITH CONTRAST CLINICAL INFORMATION: Severe pelvic pain. Prostate cancer. COMPARISON: None TECHNIQUE: Multidetector volumetric imaging was performed of the abdomen and pelvis before and after the IV administration of 95 mL of Optiray 320 intravenous contrast. Sagittal and coronal reformatted images were obtained on the technologist's workstation. DLP: 589.89 mGy-cm FINDINGS: LUNG BASES: Bibasilar airspace disease at the dependent lung of dependent atelectasis. Pacemaker lead at base of right ventricle. Vascular wall calcifications of the aorta. LIVER, GALLBLADDER, AND BILIARY TREE: The liver is normal in size, shape, and attenuation. No focal hepatic lesion or biliary ductal dilatation is present. The gallbladder is unremarkable with no evidence of radiopaque gallstones, gallbladder wall thickening, or obvious pericholecystic inflammatory changes. PANCREAS: Unremarkable. SPLEEN: Unremarkable. ADRENAL GLANDS: Unremarkable. KIDNEYS AND URETERS: 7 mm cortical cyst upper pole of the left kidney. 8 mm pedunculated cortical cyst at the anterior pole of the left kidney. No renal or ureteral calculi. No hydronephrosis. BLADDER: Unremarkable. GASTROINTESTINAL TRACT: Diverticulosis of the left colon and sigmoid. No diverticulitis. No bowel wall thickening or edema. Moderate to large volume of stool throughout the colon. The appendix is normal. Small bowel loops are unremarkable. ABDOMINAL WALL: No significant hernia is appreciated. LYMPH NODES: Normal. VASCULAR: Atherosclerotic vascular wall calcifications throughout the abdomen and pelvis. Vascular stent in the right and left common iliac arteries. No aneurysm. IVC filter present. PELVIC VISCERA: Prostate measures 4.3 cm transverse. OSSEOUS STRUCTURES: Multilevel degenerative change of the spine. Disc height narrowing, endplate spurs and facet joint arthrosis. Vacuum disc phenomenon at L4-L5 and L5-S1. Status post bilateral laminectomy L4-L5 disc levels. IMPRESSION: No acute abnormality CT scan abdomen and pelvis. SERVICE DATE: 06/15/16 EXAM TYPE: US - US-EXT BILAT VENOUS DOPPLER FINDINGS: RIGHT: There is nonocclusive thrombus along the posterior wall the common femoral vein. The right femoral vein appears duplicated. One of the duplicated veins does not completely compress, suggestive of nonocclusive thrombus. Also, in the mid to-distal thigh, a clotted duplicated or collateral femoral vein shows no significant flow on the color Doppler images. The popliteal vein and tibioperoneal trunk are patent. No deep vein thrombosis identified in the calf. No Chow's cyst. LEFT: Common femoral vein is patent. Within the proximal thigh, the visualized profunda femoris vein is patent and the examined greater saphenous vein and saphenofemoral junction are normal. The superficial femoral vein is compressible in the proximal, mid and distal thigh. The popliteal vein is patent to the level of the trifurcation. The visualized calf veins are unremarkable. Within the popliteal fossa, there is a 3.3 x 1.6 x 1.2 cm Chow's cyst.. IMPRESSION: 1. Deep vein thrombosis affecting a collateral or duplicated femoral vein in the mid to distal thigh. Also, there is nonocclusive thrombus along the posterior wall of the right common femoral vein. 2. No evidence of deep vein thrombosis in the left lower extremity. 3. Within the left popliteal fossa, a 3.3 x 1.6 x 1.2 cm Chow's cyst is noted. The critical test result was discussed with Dr. Rodriguez at 3:40 pm it was ascertained that the content and the importance of the findings was understood at the time of the direct communication. Assessment/Plan Assessment: 76-year-old gentleman with a PMH of third-degree AV block/PP p.m., DVT and RL E (2004), IVC filter placement, COPD, ANDREY not on CPAP, HTN, HLD, PVD S/PA bilateral femoropopliteal bypass (2004), endarterectomy on right common femoral artery, prostate CA S/B radiation in March 2016 and tobacco use > 6 years who presents with complaints of 3-4 day duration lower extremity weakness, gait instability and leg cramping . VS on admission: BP 132/65, HR 77, RR 20, SPO2 96% on 2 LNC, T 98.0 Pertinent labs: H&H 10.7/32.7, sodium 134, potassium 4.6, BUN/CR 14/0.8 INR: 4.46 AST/ALT: 56/74 - Ultrasound lower extremity bilateral: DVT affecting a collateral or duplicated femoral vein in the mid to distal thigh. Also there is a nonocclusive thrombus along the posterior wall of the right common femoral vein. No evidence of DVT in the left lower extremity. Within the left popliteal fossa there is a 3.31.61.2 cm Chow's cyst noted. Problem list: 1. History of DVT in lower extremity 2. Bilateral LE pain 3. GGO on CT chest 4. Supratherapeutic INR 5. Anemia 6. Bilateral upper extremity digit swelling and tenderness 7. History of IVC filter 8. COPD/ANDREY 9. Tobacco dependence 10. Peripheral vascular disease Plan: * Lower extremity discomfort: DDX includes claudication in the setting of DVT. Percocet for analgesia, continue ASA, vascular surgery to see the patient today, however patient has elevated INR, unlikely that vascular will paln to interevne at this time. Follow-up with Dr. Pablo. * GGO on CT chest: ? CAP, vs ILD. Start on Ceftriaxone and Azithromycin. * Supratherapeutic INR: 6.02. Continue to hold Coumadin today with target INR between 2 and 3 * BAR, rheumatoid factor, ESR, CPK in the a.m. in the setting of bilateral hand swelling and pain lasting 2 hours of morning year, lower extremity weakness of sudden onset. DDX PMR * TRCs, Budenoside * GI prophylaxis: Famotidine 20mg BID * Hypothyroiduism: Continue Synthroid 50mcg * Will resume heart healthy diet today. * DVT prophylaxis: On Heparin Problem List: 1. Pneumonia 2. DVT (deep venous thrombosis) Pain Ratin Pain Location: lower extremities Pain Goal: Pain 4 or less Pain Plan: percocet Tomorrow's Labs & Rationales: cbc, bep, inr- supratherapeutic INR, H&H - anemia, BEP - hyponatremia LIZET MOCTEZUMA MD 06/16/16 1236: Attending MD Review Statement Attending Statement Attending MD Statement: examined this patient, discuss w/resident/PA/BARK SKINNER, agreed w/resident/PA/BARK SKINNER, reviewed EMR data (avail), discussed with nursing, reviewed images, amended to note Attending Assessment/Plan: The patient was seen and discussed with house staff. Agree with the plan of care as outlined.
--- NOTE | 2016-06-16 07:56 | NUR ---
Physical Therapy: Consult received and chart reviewed. Pt presents with whole widespread body pain. Significant Leg pain with evidence of DVT. Pt potentially going to OR today. states to hold off on PT for now. Will follow up as appropraite. Thank you.
[2016-06-16 08:28] LABS: PTT 62 SEC (25-37)
[2016-06-16 08:34] LABS: ABSOLUTE BASOPHIL COUNT 0 /CUMM (0.0-0.2); ABSOLUTE EOSINOPHIL COUNT 0.1 /CUMM (0.0-0.7); ABSOLUTE GRANULOCYTE CT 6.5 /CUMM (1.4-6.5); ABSOLUTE LYMPH COUNT 0.9 /CUMM (1.2-3.4); ABSOLUTE MONOCYTE COUNT 0.8 /CUMM (0.10-0.60); BASOPHIL % 0.5 % (0.0-2.0); EOSINOPHIL % 1.5 % (0-5); GRANULOCYTE % 78.4 % (42.2-75.2); HEMATOCRIT 32.5 % (42-52); MEAN CORPUSCULAR HGB 28.4 PG (27.0-31.0); MEAN CORPUSCULAR HGB CONC 33.2 G/DL (33.0-37.0); MEAN CORPUSCULAR VOLUME 85.7 FL (80.0-94.0); PLATELET COUNT 324 /CUMM (130-400); RBC DISTRIBUTION WIDTH 14.6 % (11.5-14.5); RED BLOOD CELL CT 3.79 /CUMM (4.70-6.10); WHITE BLOOD CELL COUNT 8.3 /CUMM (4.8-10.8)
[2016-06-16 08:35] LABS: PT 62.1 SEC (9.4-12.5)
[2016-06-16 10:39] LABS: PTT 85 SEC (25-37)
--- NOTE | 2016-06-16 12:26 | ECHOCARDIOGRAM REPORT ---
GABE WOOD Age: 76 : 1940 Gender: M Exam Date: 06/16/2016 10:25 Exam Location: [address] [place] [address] Ht (in): 69 Wt (lb): 179 BSA: 2.00 BP: 125 / 60 Ordering Physician: LEE LEY MD Referring Physician: LEE LEY MD Technologist: Hunter De Luna [facility] Room Number: 210-1 Indications: SOURCE OF EMBOLUS Rhythm: Sinus Technical Quality: Poor, Very technically difficult study FINDINGS Left Ventricle Normal size left ventricle. Normal left ventricular ejection fraction estimated at 55-60%. Right Ventricle Right ventricle not well visualized, grossly normal. Right Atrium Normal right atrial size. Catheter/pacemaker wire in the right atrial cavity. Left Atrium Left atrial size at the upper limits of normal. Mitral Valve Mild thickening/calcification of the anterior mitral valve leaflet. Mitral annular calcification. Mild mitral regurgitation. Aortic Valve Diffuse thickening of the aortic valve cusps with reduced excursion. No aortic stenosis. No aortic regurgitation. Tricuspid Valve Tricuspid valve not well visualized. [id number] tricuspid regurgitation. Right ventricular systolic pressure estimated at 26 mmHg. Pulmonic Valve Pulmonic valve not well visualized. Pericardium No pericardial effusion. Great Vessels Aortic root and proximal ascending aorta not well visualized. CONCLUSIONS 1. This was a techncally difficult and very limited evaluation. No parasternal images were obtained. 2. Fibrocalcific degeneration is present in the aortic valve. The valve was not well visualized anatomically. There is no significant valvular stenosis. The peak gradient across the aortic outflow tract is 12 mmHg. 3. Thickening and calcification of the mitral leaflets is present with anular calcification and mild mitral insufficiency. 4. There is no significant pericardial fluid detected. 5. The left ventricular chamber size and systolic function appear normal. Accurate wall motion assessment was not possible due to the quality of the images obtained. 6. The right heart structures were not optimally visualized. Mild to moderate tricuspid insufficiency is present with no significant pulmonary hypertension. 7. An ill defined echodensity is present in the right atrial cavity which appears to be a pacemaker wire. 8. There are no definite embolic sources identified on this examination, however, it was a technically difficult and limited examination and, if clinically indicated, a MALINA would better exclude potential embolic sources. Rafael Day M.D. (Electronically Signed) Final Date: 16 June 2016 12:25 MEASUREMENTS (Male / Female) Normal Values 2D ECHO LV Diastolic Diameter PLAX 5.2 cm 4.2 - 5.9 / 3.9 - 5.3 cm LV Systolic Diameter PLAX 3.7 cm 2.1 - 4.0 cm LV Fractional Shortening PLAX 28.8 % 25 - 46 % LV Ejection Fraction 2D Teich 55.1 % IVS Diastolic Thickness 1.0 cm LVPW Diastolic Thickness 1.1 cm LV Relative Wall Thickness 0.4 LVOT Diameter 1.9 cm Aortic Root Diameter 3.3 cm DOPPLER AV Peak Velocity 170.0 cm/s AV Peak Gradient 11.6 mmHg AV Mean Velocity 113.0 cm/s AV Mean Gradient 6.0 mmHg AV Velocity Time Integral 35.0 cm LVOT Peak Velocity 76.7 cm/s LVOT Peak Gradient 2.4 mmHg LVOT Mean Velocity 52.7 cm/s LVOT Mean Gradient 1.0 mmHg LVOT Velocity Time Integral 17.8 cm LVOT Stroke Volume 50.5 cm AV Area Cont Eq vti 1.4 cm AV Area Cont Eq pk 1.3 cm MV Peak Velocity 101.0 cm/s MV Peak Gradient 4.1 mmHg MV Mean Velocity 59.1 cm/s MV Mean Gradient 2.0 mmHg Mitral E Point Velocity 94.8 cm/s Mitral A Point Velocity 99.7 cm/s Mitral E to A Ratio 1.0 MV PHT Velocity 96.4 cm/s MV Deceleration Jack 369.0 cm/s MV Pressure Half Time 78.4 ms MV Area PHT 2.8 cm MV Deceleration Time 430.0 ms TR Peak Velocity 231.0 cm/s TR Peak Gradient 21.3 mmHg Right Atrial Pressure 5.0 mmHg Pulmonary Artery Systolic Pressu 26.3 mmHg Right Ventricular Systolic Press 26.3 mmHg PV Peak Velocity 102.0 cm/s PV Peak Gradient 4.2 mmHg PV Mean Velocity 67.7 cm/s PV Mean Gradient 2.0 mmHg PV Velocity Time Integral 22.5 cm
[2016-06-16 14:27] VITALS: BP 114/58
[2016-06-16 22:00] VITALS: BP 110/54
[2016-06-16 22:27] LABS: PTT 84 SEC (25-37)
--- NOTE | 2016-06-17 05:41 | PN- Housestaff ---
TRINITY DESAI,SOCORRO 06/17/16 0528: Subjective Follow-up For: RLE DVT Supratherapeutic INR Subjective: Patient seen and examined. He is seen lying upright in bed resting comfortably. He appears to be in no acute distress. At his bedside are two family members whom are up to date about the patients clinical condition and have no questions at this time. He reports persistent pain and discomfort in his legs and joints, specifically his hands. Otherwise he has no complaints. Additionally he denies any headache, fever, chills, chest pain, worsening shortness of breath, nausea, vomiting, diarrhea. No overnight events reported. Review of Systems Constitutional: Reports: see HPI. Objective Last 24 Hrs of Vital Signs/I&O Vital Signs Date Time Temp Pulse Resp B/P Pulse O2 O2 Flow FiO2 Ox Delivery Rate 06/17 1600 92 Nasal 2.0L Cannula 06/17 1416 98.2 84 20 132/72 92 Nasal 2.0L Cannula 06/17 0917 76 128/60 06/17 0800 94 Nasal 2.0L Cannula 06/17 0617 98.2 76 20 128/60 92 Nasal 2.0L Cannula 06/17 0000 Nasal 2.0L Cannula 06/16 2200 97.6 65 18 110/54 Nasal 2.0L Cannula Intake & Output 06/17 1600 06/17 0800 06/17 0000 Intake Total 9765 182 1905 Output Total 900 1225 825 Balance 108 -817 253 Intake, IV 208 208 478 Intake, Oral 800 200 600 Output, Urine 900 1225 825 Physical Exam General Appearance: Alert, Oriented X3, Cooperative, No Acute Distress Other Physical Findings: General - well developed, well nourished elderly man in no acute distress HEENT - NCAT, PERRL, EOMI, anicteric sclera CVS- S1, S2 w/o m/g/r Resp - bibasilar rhonchi with decreased airflow GI - Soft, nontender, nondistended, normal bowel sounds Neuro - Awake and alert, CN II - XII grossly intact Ext- normal pulses, 1+ bilateral lower extremity edema, mildly tender right lower extremity Current Medications: Current Medications Sig/Annabel Start time Last Medication Dose Route Stop Time Status Admin Atorvastatin Calcium 10 MG 1700 06/16 1700 AC 06/17 PO 1706 Azithromycin 500 MG Q24H 06/16 1800 AC 06/17 Dextrose/Water 250 ML IV 1849 Budesonide/ 2 PUF BID 06/16 1000 AC 06/17 Formoterol Fumarate INH 0920 Ceftriaxone Sodium 1,000 MG Q24H 06/16 1800 AC 06/17 IV 1706 Cholecalciferol 10,000 IU DAILY 06/16 1000 AC 06/17 PO 0917 Citalopram 20 MG DAILY 06/16 1000 AC 06/17 Hydrobromide PO 0917 Famotidine 20 MG BID 06/15 2253 AC 06/17 PO 0920 Heparin Sodium/ 25,000 UNIT Q24H 06/16 0145 AC 06/17 Dextrose IV 1534 Dextrose/Water 500 ML Ibuprofen 600 MG Q6P PRN 06/15 2030 AC PO Levothyroxine Sodium 0.05 MG DAILY AC 06/16 0700 AC 06/17 PO 0626 Oxycodone/ 1 TAB Q6P PRN 06/15 2030 AC Acetaminophen PO Oxycodone/ 2 TAB Q6P PRN 06/15 2030 AC 06/17 Acetaminophen PO 1405 Patient Medication 1 ED .STK-MED ONE 06/17 1353 [place] Teaching ED 06/17 1354 Tamsulosin HCl 0.4 MG DAILY 06/16 1000 AC 06/17 PO 0917 Last 24 Hrs of Lab/Lizandro Results Last 24 Hrs of Labs/Mics: Laboratory Tests 06/17/16 1020: APTT 88 H 06/17/16 0626: Anion Gap 9, Estimated GFR > 60, BUN/Creatinine Ratio 21.1, PT 56.8 *H, INR 5.50 *H, CBC w Diff NO MAN DIFF REQ, RBC 3.83 L, MCV 86.0, MCH 28.1, RDW 14.6 H, MPV 8.4, Gran % 84.1 H, Lymphocytes % 5.2 L, Monocytes % 7.0, Eosinophils % 3.3, Basophils % 0.4, Absolute Granulocytes 7.4 H, Absolute Lymphocytes 0.5 L, Absolute Monocytes 0.6, Absolute Eosinophils 0.3, Absolute Basophils 0, PUBS MCHC 32.7 L 06/16/16 2144: APTT 84 H Assessment/Plan Assessment: Patient reports improvement of the swelling in his hands but does admit to persistence of the pain in his joints with inability to fully clench his fists. Vascular surgery recommendations still pending. Heme/Onc consult placed for evaluation of a potential coagulopathy as the etiology of the patients DVT despite being maintained on Coumadin. BAR still pending. PT evaluation still pending. Right Lower Extremity Deep Venous Thrombosis / History of DVT Patient seen for evaluation of right lower extremity swelling while taking coumadin for history of previous deep venous thrombosis. Ultrasound demonstrates deep venous thrombosis of right lower extremity. CTA negtive for venous thromboembolism. Starting on heparin for failure of coumadin. -General Medicine -Heparin Drip -Vasular Surgery Consult -Heme/Onc consult -Physical Therapy evaluation -Daily INR, CBC Possible Developing Pneumonia CTA chest and chest x-ray suggestive of possible developing pneumonia. Rapid flu negative. -TRC -Supplemental oxygen -Incentive spirometry -Azithromycin 500mg IV Daily -Ceftriaxone 1g IV Daily -Symbicort -Follow up blood cultures Hyperlipidemia-Atorvastatin 10mg PO Daily Hypothyroidism-Levothyroxine 5mcg PI Daily Benign Prostatic Hypertrophy-Flomax 0.4mg PO Daily Pain Plan-Ibuprofen/Percocet Diet-Heart Healthy Diet DVT PPx-on anticoagulation Code Status-FULL CODE Problem List: 1. DVT (deep venous thrombosis) Pain Ratin Pain Location: Right lower extremity Joints Pain Goal: Pain 4 or less Pain Plan: As noted in plan Tomorrow's Labs & Rationales: CBC BEP INR LIZET MOCTEZUMA MD 06/17/16 1348: Attending MD Review Statement Attending Statement Attending MD Statement: examined this patient, discuss w/resident/PA/GOGGLES ASSEMBLER, agreed w/resident/PA/GOGGLES ASSEMBLER, reviewed EMR data (avail), discussed with nursing, discussed with case mgmt, amended to note Attending Assessment/Plan: The patient was seen and discussed with house staff. Agree with the plan of care as outlined. Await input from Vascular Surgery and Hematology regarding whether we should consider this a Coumadin failure. He was off of Coumadin x 5 days in April. DVT noted is canalized and there are collaterals suggesting more subacute. He does have bad arthritis symptoms, however hesitant to use NSAIDS with current INR/PTT. Lung exam improved. Continue antibiotics. PT/OT consults.
[2016-06-17 06:17] VITALS: BP 128/60
[2016-06-17 07:59] LABS: ABSOLUTE BASOPHIL COUNT 0 /CUMM (0.0-0.2); ABSOLUTE EOSINOPHIL COUNT 0.3 /CUMM (0.0-0.7); ABSOLUTE GRANULOCYTE CT 7.4 /CUMM (1.4-6.5); ABSOLUTE LYMPH COUNT 0.5 /CUMM (1.2-3.4); ABSOLUTE MONOCYTE COUNT 0.6 /CUMM (0.10-0.60); BASOPHIL % 0.4 % (0.0-2.0); EOSINOPHIL % 3.3 % (0-5); GRANULOCYTE % 84.1 % (42.2-75.2); MEAN CORPUSCULAR HGB 28.1 PG (27.0-31.0); MEAN CORPUSCULAR HGB CONC 32.7 G/DL (33.0-37.0); MEAN PLATELET VOLUME 8.4 FL (7.4-10.4); PLATELET COUNT 326 /CUMM (130-400); RBC DISTRIBUTION WIDTH 14.6 % (11.5-14.5); RED BLOOD CELL CT 3.83 /CUMM (4.70-6.10)
[2016-06-17 08:38] LABS: PT 56.8 SEC (9.4-12.5)
[2016-06-17 08:46] LABS: WHITE BLOOD CELL COUNT 8.9 /CUMM (4.8-10.8)
[2016-06-17 10:51] LABS: PTT 88 SEC (25-37)
[2016-06-17 14:16] VITALS: BP 132/72
--- NOTE | 2016-06-17 20:28 | Cons- Hematology ---
General Information and HPI Consulting Request Date of Consult: 06/17/16 Requested By: LIZET MOCTEZUMA MD Reason for Consult: DVT Source of Information: patient, old records Exam Limitations: no limitations History of Present Illness: Mr Marmolejo is a 76-year-old male with PVD s/p femoropopliteal bypass (2004), right lower extremity DVT (2004) s/p IVC filter, third-degree AV block/PP p.m., COPD, ANDREY, endarterectomy on right common femoral artery, prostate cancer s/p radiation in March 2016 and tobacco use who presented to the hospital with lower extremity weakness and leg cramping. His leg symptoms have been on going for the past 4 days or so. He reports pain in both upper thighs but worse on the left as compared to the right. His edema was noted to be also worse on the left side. He had a mechanical fall 2 weeks prior to admission with right forehead. In the ED, he was evaluated with CTA of the chest which was negative for PE. Ultrasound of the lower extremity noted DVT in the right lower extremity. This seems chronic to subacute. He is currently supratherapeutic on warfarin. He was started on heparin drip. There was also concern for CAP and he is currently on antibiotics. Of note, he was off anticoagulation for about 5 days in April. He feels better currently. His swelling has improved. He has intermittent groin pain bilaterally. Allergies/Medications Allergies: Coded Allergies: No Known Allergies (06/08/15) Home Med List: Acetaminophen (Mapap) 500 MG TABLET 2 TAB PO Q6-PRN PRN PAIN (Reported) Cholecalciferol (Vitamin D3) (Vitamin D3) 5,000 UNIT TABLET 1 TAB PO DAILY SUPPLEMENT (Reported) Citalopram Hydrobromide (Citalopram HBr) 20 MG TABLET 1 TAB PO DAILY MENTAL HEALTH (Reported) Cyanocobalamin (Vitamin B-12) 1,000 MCG TABLET 2 TAB PO DAILY Supplement ( Reported) Fluticasone/Vilanterol (Breo Ellipta 200-25 Mcg INH) (Unknown Strength) BLST.W.DEV (Unknown Dose) INH DAILY COPD (Reported) Levothyroxine Sodium 50 MCG TABLET 1 TAB PO DAILY AC THYROID (Reported) Ranitidine HCl (Acid Associate Buyer) 150 MG TABLET 1 TAB PO BID GERD (Reported) Simvastatin (Simvastatin*) 10 MG TABLET 1 TAB PO QPM CHOLESTEROL (Reported) Tamsulosin HCl (Flomax) 0.4 MG CAP.ER.24H 1 CAP PO DAILY BPH (Reported) Warfarin Sodium (Coumadin) 4 MG TABLET 1 TAB PO AD BLOOD THINNER (Reported) Current Medications: Current Medications Sig/Annabel Start time Last Medication Dose Route Stop Time Status Admin Atorvastatin Calcium 10 MG 1700 06/16 1700 AC 06/17 PO 1706 Azithromycin 500 MG Q24H 06/16 1800 AC 06/17 Dextrose/Water 250 ML IV 1849 Budesonide/ 2 PUF BID 06/16 1000 AC 06/17 Formoterol Fumarate INH 0920 Ceftriaxone Sodium 1,000 MG Q24H 06/16 1800 AC 06/17 IV 1706 Cholecalciferol 10,000 IU DAILY 06/16 1000 AC 06/17 PO 0917 Citalopram 20 MG DAILY 06/16 1000 AC 06/17 Hydrobromide PO 0917 Famotidine 20 MG BID 06/15 2253 AC 06/17 PO 0920 Heparin Sodium/ 25,000 UNIT Q24H 06/16 0145 AC 06/17 Dextrose IV 1534 Dextrose/Water 500 ML Ibuprofen 600 MG Q6P PRN 06/15 2030 AC PO Levothyroxine Sodium 0.05 MG DAILY AC 06/16 0700 AC 06/17 PO 0626 Oxycodone/ 1 TAB Q6P PRN 06/15 2030 AC Acetaminophen PO Oxycodone/ 2 TAB Q6P PRN 06/15 2030 AC 06/17 Acetaminophen PO 1405 Patient Medication 1 ED .[facility]-MED ONE 06/17 1353 [facility] Teaching [facility] 06/17 1354 Tamsulosin HCl 0.4 MG DAILY 06/16 1000 AC 06/17 PO 0917 Review of Systems Review of Systems Constitutional: Reports: malaise, weakness. Denies: chills, fever. Cardiovascular: Reports: edema. Denies: chest pain. Respiratory: Reports: short of breath. GI: Denies: abdominal pain, bloody stool. Genitourinary: Denies: dysuria. Hematologic/Endocrine: Denies: bleeding. Immunologic/Allergic: Denies: lymphadenopathy. All Other Systems: Reviewed and Negative Past History Travel History Traveled to [place] past 21 day No Medical History Neurological: NONE EENT: NONE Cardiovascular: CAD, hypertension, hyperlipidemia, myocardial infarction, PPM Respiratory: COPD Gastrointestinal: GERD Hepatic: NONE Renal: NONE Musculoskeletal: osteoarthritis Psychiatric: NONE Endocrine: hyperthyroidism Blood Disorders: NONE Cancer(s): prostate cancer Other Medical Hx: Hypothyroidism, hypertension, hyperlipidemia Surgical History Surgical History: non-contributory Psychosocial History Smoking Status: Current Everyday Smoker ETOH Use: denies use Illicit Drug Use: denies illicit drug use Exam & Diagnostic Data Vital Signs and I&O Vital Signs Date Time Temp Pulse Resp B/P Pulse O2 O2 Flow FiO2 Ox Delivery Rate 06/17 1600 92 Nasal 2.0L Cannula 06/17 1416 98.2 84 20 132/72 92 Nasal 2.0L Cannula 06/17 0917 76 128/60 06/17 0800 94 Nasal 2.0L Cannula 06/17 0617 98.2 76 20 128/60 92 Nasal 2.0L Cannula 06/17 0000 Nasal 2.0L Cannula 06/16 2200 97.6 65 18 110/54 Nasal 2.0L Cannula Intake & Output 06/17 1600 06/17 0800 06/17 0000 Intake Total 9831 588 6266 Output Total 900 1225 825 Balance 108 -817 253 Intake, IV 208 208 478 Intake, Oral 800 200 600 Output, Urine 900 1225 825 Physical Exam General Appearance: no apparent distress, alert, awake, comfortable Head: right forehead with healed lesion Eyes: Bilateral: PERRL. Respiratory: normal breath sounds, chest non-tender, no respiratory distress, on 2L NC Cardiovascular: regular rate/rhythm, systolic murmur Gastrointestinal: normal bowel sounds, soft, non-tender, no organomegaly Extremities: no edema, varicose vein Neurologic/Psych: awake, alert, oriented x 3 Skin: normal color, warm/dry Lymphatic: no anterior cervical maame Last 48 Hours of Lab Results: Laboratory Tests 06/17 06/17 06/16 06/16 1020 0626 2144 0950 Chemistry Sodium (137 - 145 mmol/L) 134 L Potassium (3.5 - 5.1 mmol/L) 5.1 Chloride (98 - 107 mmol/L) 98 Carbon Dioxide (22 - 30 mmol/L) 26 Anion Gap (5 - 16) 9 BUN (9 - 20 mg/dL) 19 Creatinine (0.7 - 1.2 mg/dL) 0.9 Estimated GFR (>60 ml/min) > 60 BUN/Creatinine Ratio (7 - 25 %) 21.1 Coagulation PT (9.4 - 12.5 SEC) 56.8 *H INR (0.90 - 1.17) 5.50 *H APTT (25 - 37 SEC) 88 H 84 H 85 H Hematology CBC w Diff NO MAN DIFF REQ WBC (4.8 - 10.8 /CUMM) 8.9 RBC (4.70 - 6.10 /CUMM) 3.83 L Hgb (14.0 - 18.0 G/DL) 10.8 L Hct (42 - 52 %) 33.0 L MCV (80.0 - 94.0 FL) 86.0 MCH (27.0 - 31.0 PG) 28.1 RDW (11.5 - 14.5 %) 14.6 H Plt Count (130 - 400 /CUMM) 326 MPV (7.4 - 10.4 FL) 8.4 Gran % (42.2 - 75.2 %) 84.1 H Lymphocytes % (20.5 - 51.1 %) 5.2 L Monocytes % (1.7 - 9.3 %) 7.0 Eosinophils % (0 - 5 %) 3.3 Basophils % (0.0 - 2.0 %) 0.4 Absolute Granulocytes (1.4 - 6.5 /CUMM) 7.4 H Absolute Lymphocytes (1.2 - 3.4 /CUMM) 0.5 L Absolute Monocytes (0.10 - 0.60 /CUMM) 0.6 Absolute Eosinophils (0.0 - 0.7 /CUMM) 0.3 Absolute Basophils (0.0 - 0.2 /CUMM) 0 PUBS MCHC (33.0 - 37.0 G/DL) 32.7 L 06/16 06/16 06/16 0620 0620 0600 Chemistry Sodium (137 - 145 mmol/L) 134 L Potassium (3.5 - 5.1 mmol/L) 5.0 Chloride (98 - 107 mmol/L) 100 Carbon Dioxide (22 - 30 mmol/L) 26 Anion Gap (5 - 16) 8 BUN (9 - 20 mg/dL) 14 Creatinine (0.7 - 1.2 mg/dL) 0.8 Estimated GFR (>60 ml/min) > 60 BUN/Creatinine Ratio (7 - 25 %) 17.5 Creatine Kinase (55 - 170 U/L) 39 L Coagulation PT (9.4 - 12.5 SEC) 62.1 *H INR (0.90 - 1.17) 6.02 *H APTT (25 - 37 SEC) Cancelled 62 H Hematology CBC w Diff NO MAN DIFF REQ WBC (4.8 - 10.8 /CUMM) 8.3 RBC (4.70 - 6.10 /CUMM) 3.79 L Hgb (14.0 - 18.0 G/DL) 10.8 L Hct (42 - 52 %) 32.5 L MCV (80.0 - 94.0 FL) 85.7 MCH (27.0 - 31.0 PG) 28.4 RDW (11.5 - 14.5 %) 14.6 H Plt Count (130 - 400 /CUMM) 324 MPV (7.4 - 10.4 FL) 8.0 Gran % (42.2 - 75.2 %) 78.4 H Lymphocytes % (20.5 - 51.1 %) 10.6 L Monocytes % (1.7 - 9.3 %) 9.0 Eosinophils % (0 - 5 %) 1.5 Basophils % (0.0 - 2.0 %) 0.5 Absolute Granulocytes (1.4 - 6.5 /CUMM) 6.5 Absolute Lymphocytes (1.2 - 3.4 /CUMM) 0.9 L Absolute Monocytes (0.10 - 0.60 /CUMM) 0.8 H Absolute Eosinophils (0.0 - 0.7 /CUMM) 0.1 Absolute Basophils (0.0 - 0.2 /CUMM) 0 PUBS MCHC (33.0 - 37.0 G/DL) 33.2 ESR Westergren (0 - 10 MM) 87 H Immunology Rheum Factor Semi-Quant (<12 IU/Ml) < 8.6 BAR Titer Pending Anti-Nuclear Antibody Pending 06/16 0205 Coagulation APTT (25 - 37 SEC) 56 H Imaging/Other Studies: Abdomen/pelvis CT 06/15/2016: No acute abnormality CT scan abdomen and pelvis. Chest CTA 06/15/2016: 1. No pulmonary embolism. 2. Diffuse bronchial wall thickening with associated groundglass opacities. Areas of septal thickening with more prominent groundglass opacities at the lung bases. Considerations include fluid overload with mild interstitial and alveolar edema. Infectious/inflammatory processes are also a possibility. 3. Multiple stable pulmonary nodule suggesting a benign etiology. Venous doppler study 06/15/2016: 1. Deep vein thrombosis affecting a collateral or duplicated femoral vein in the mid to distal thigh. Also, there is nonocclusive thrombus along the posterior wall of the right common femoral vein. 2. No evidence of deep vein thrombosis in the left lower extremity. 3. Within the left popliteal fossa, a 3.3 x 1.6 x 1.2 cm Chow's cyst is noted. Echocardiogram 06/15/2016: 1. This was a techncally difficult and very limited evaluation. No parasternal images were obtained. 2. Fibrocalcific degeneration is present in the aortic valve. The valve was not well visualized anatomically. There is no significant valvular stenosis. The peak gradient across the aortic outflow tract is 12 mmHg. 3. Thickening and calcification of the mitral leaflets is present with anular calcification and mild mitral insufficiency. 4. There is no significant pericardial fluid detected. 5. The left ventricular chamber size and systolic function appear normal. Accurate wall motion assessment was not possible due to the quality of the images obtained. 6. The right heart structures were not optimally visualized. Mild to moderate tricuspid insufficiency is present with no significant pulmonary hypertension. 7. An ill defined echodensity is present in the right atrial cavity which appears to be a pacemaker wire. 8. There are no definite embolic sources identified on this examination, however , it was a technically difficult and limited examination and, if clinically indicated, a MALINA would better exclude potential embolic sources. Assessment/Plan Assessment: Mr Marmolejo is a 76-year-old male significant vascular disease with PVD s/p femoropopliteal bypass (2004), right lower extremity DVT (2004) s/p IVC filter, third-degree AV block/PP p.m., COPD, ANDREY, endarterectomy on right common femoral artery, prostate cancer s/p radiation in March 2016 and tobacco use who presented to the hospital with lower extremity weakness and leg cramping. He was found to have a right lower extremity DVT. Most of his symptoms seem to be related to the left side but suprisingly his DVT is on the right side on the venous doppler ultrasound. His previous DVT was also on the right side. He had previous vascular intervention on the right lower extremity which would increase his risk for DVT. It is unclear if this is a new thrombosis given the collaterals and cannulation of the thrombosis. His symptoms are worse on the left side rather than the right side. His makes it less likely that the thrombosis is the etiology of his symptoms. It is unclear if he truly have failed warfarin at this point. Since starting back on his warfarin from being off it for 5 days previously in April, his INR has fluctated significantly. Given the unclear nature and the fluctuation of his INR, it is reasonable to switch him to a different anticoagulant. LMWH may be used but will be difficult to give and maintain as an outpatient. NOAC such as apixaban, rivaroxaban, or dabigatran may be an option. Dabigatran has a reversal agent approved which may be reasonable. Cost may be an issue for the patient. If cost is an issues, warfarin may be used again as it is unclear that he failed it. With his history of vascular disease, an addition of an antiplatelet agent may be also reasonable. Recommendations: 1. Can consider switching to NOAC (dabigatran, apixaban, rivarxaban) 2. Monitor for bleeding 3. Consider addition of antiplatelet agent 4. If cost is an issue and NOAC is unable to be obtained, warfarin may be used again Problem List: 1. Supratherapeutic INR 2. Anemia 3. DVT (deep venous thrombosis) Other Findings/Comments: Please call [phone] with any questions. Consult Acknowledgment - Thank you for your consult request.
[2016-06-17 22:35] VITALS: BP 130/68
[2016-06-17 23:41] LABS: PTT 101 SEC (25-37)
[2016-06-18 06:59] VITALS: BP 132/60
--- NOTE | 2016-06-18 07:25 | PN- Housestaff ---
SOCORRO PETERSEN MD 06/18/16 0725: Subjective Follow-up For: RLE DVT Supratherapeutic INR Subjective: Patient seen and examined. He is seen lying flat in bed resting comfortably. He appears to be in no acute distress. Currently he offers no new complaints and is requesting to go back to sleep. Otherwise he denies any headache, fever, chills, chest pain, palpitations, shortness of breath, nausea, vomiting, diarrhea. No overnight events reported. Review of Systems Constitutional: Reports: see HPI. Objective Last 24 Hrs of Vital Signs/I&O Vital Signs Date Time Temp Pulse Resp B/P Pulse O2 O2 Flow FiO2 Ox Delivery Rate 06/18 0659 97.4 74 20 132/60 94 Nasal 2.0L Cannula 06/18 0000 Nasal 2.0L Cannula 06/17 2235 97.7 86 20 130/68 95 Room Air 06/17 1600 92 Nasal 2.0L Cannula 06/17 1416 98.2 84 20 132/72 92 Nasal 2.0L Cannula 06/17 0917 76 128/60 Intake & Output 06/18 1600 06/18 0800 06/18 0000 Intake Total 181.6 990 Output Total 1400 875 Balance -1218.4 115 Intake, IV 181.6 390 Intake, Oral 600 Output, Urine 1400 875 Physical Exam General Appearance: Alert, Oriented X3, Cooperative, No Acute Distress Other Physical Findings: General - well developed, well nourished elderly man in no acute distress HEENT - NCAT, PERRL, EOMI, anicteric sclera CVS- S1, S2 w/o m/g/r Resp - bibasilar rhonchi with decreased airflow GI - Soft, nontender, nondistended, normal bowel sounds Neuro - Awake and alert, CN II - XII grossly intact Ext- normal pulses, 1+ bilateral lower extremity edema, mildly tender right lower extremity Current Medications: Current Medications Sig/Annabel Start time Last Medication Dose Route Stop Time Status Admin Aspirin 81 MG DAILY 06/18 1000 AC PO Atorvastatin Calcium 10 MG 1700 06/16 1700 AC 06/17 PO 1706 Azithromycin 500 MG Q24H 06/16 1800 AC 06/17 Dextrose/Water 250 ML IV 1849 Budesonide/ 2 PUF BID 06/16 1000 AC 06/17 Formoterol Fumarate INH 2112 Ceftriaxone Sodium 1,000 MG Q24H 06/16 1800 AC 06/17 IV 1706 Cholecalciferol 10,000 IU DAILY 06/16 1000 AC 06/17 PO 0917 Citalopram 20 MG DAILY 06/16 1000 AC 06/17 Hydrobromide PO 0917 Docusate Sodium 100 MG DAILY 06/18 1000 AC PO Famotidine 20 MG BID 06/15 2253 AC 06/17 PO 2112 Heparin Sodium/ 25,000 UNIT Q24H 06/16 0145 AC 06/17 Dextrose IV 2348 Dextrose/Water 500 ML Ibuprofen 600 MG Q6P PRN 06/15 2030 AC PO Levothyroxine Sodium 0.05 MG DAILY AC 06/16 0700 AC 06/18 PO 0632 Oxycodone/ 1 TAB Q6P PRN 06/15 2030 AC Acetaminophen PO Oxycodone/ 2 TAB Q6P PRN 06/15 2030 AC 06/18 Acetaminophen PO 0631 Patient Medication 1 ED .[facility]-MED ONE 06/17 1353 [facility] Teaching ED 06/17 1354 Polyethylene Glycol 17 GM DAILY 06/18 1000 AC PO Senna 187 MG DAILY 06/18 1000 AC PO Senna 187 MG AT BEDTIME PRN 06/17 2100 DC PO Tamsulosin HCl 0.4 MG DAILY 06/16 1000 AC 06/17 PO 0917 Last 24 Hrs of Lab/Lizandro Results Last 24 Hrs of Labs/Mics: Laboratory Tests 06/18/16 0634: Anion Gap 7, Estimated GFR > 60, BUN/Creatinine Ratio 22.2, PT Pending, INR Pending, APTT Pending, CBC w Diff NO MAN DIFF REQ, RBC 3.77 L, MCV 85.6, MCH 28.0, RDW 14.7 H, MPV 8.2, Gran % 77.7 H, Lymphocytes % 9.9 L, Monocytes % 7.2, Eosinophils % 4.8, Basophils % 0.4, Absolute Granulocytes 6.1, Absolute Lymphocytes 0.8 L, Absolute Monocytes 0.6, Absolute Eosinophils 0.4, Absolute Basophils 0, PUBS MCHC 32.7 L 06/17/16 2301: APTT 101 *H 06/17/16 1020: APTT 88 H Assessment/Plan Assessment: Patient was evaluated by hematology crm consultant yesterday whom commented that given his history of present illness this scenario isn't clear that he actually failed outpatient warfarin therapy. Given the presence of collateral formation around the deep venous thrombosis and cannulation of the clot his presentation is more sales support representative of a chronic deep venous thrombosis more so than an acute one. If there is high clinical suspicion of Coumadin failure patient may be changed to a novel anticoagulant agent such as Pradaxa per hematology recommendations. Heparin was discontinued. Aspirin was added to patient's medication regimen. Vascular surgery recommeneded no current intervention. Patient's pneumonia is also clinically improving as he has remained without fever or leukocytosis. Ceftriaxone and Azithromycin were discontinued and Augmentin was started to complete a 5 day total antibiotic course. BAR still pending. Right Lower Extremity Deep Venous Thrombosis / History of DVT Patient seen for evaluation of right lower extremity swelling while taking coumadin for history of previous deep venous thrombosis. Ultrasound demonstrates deep venous thrombosis of right lower extremity. CTA negtive for venous thromboembolism. -General Medicine -Heparin Drip discontinued -Aspirin 81 mg by mouth daily -Vasular Surgery Consult -Heme/Onc consult -Physical Therapy evaluation: Assist of 2, STR -Daily INR, CBC Possible Developing Pneumonia CTA chest and chest x-ray suggestive of possible developing pneumonia. Rapid flu negative. -TRC -Supplemental oxygen -Incentive spirometry -Azithromycin discontinued -Ceftriaxone discontinued -Augmentin 875mg PO Q12H for 5 day total antibotic course -Symbicort -Follow up blood cultures Hyperlipidemia-Atorvastatin 10mg PO Daily Hypothyroidism-Levothyroxine 5mcg PI Daily Benign Prostatic Hypertrophy-Flomax 0.4mg PO Daily Pain Plan-Ibuprofen/Percocet Diet-Heart Healthy Diet DVT PPx-on anticoagulation Code Status-FULL CODE Problem List: 1. DVT (deep venous thrombosis) Pain Ratin Pain Location: Right lower extremity Pain Goal: Pain 4 or less Pain Plan: As noted in plan Tomorrow's Labs & Rationales: None LIZET MOCTEZUMA MD 06/18/16 1432: Attending MD Review Statement Attending Statement Attending MD Statement: examined this patient, discuss w/resident/PA/[employer], agreed w/resident/PA/[employer], reviewed EMR data (avail), discussed with nursing, discussed with case mgmt, amended to note Attending Assessment/Plan: The patient was seen and discussed with house staff. Agree with the plan of care as above.
--- NOTE | 2016-06-18 08:13 | PN- Hematology ---
Subjective Subjective: He denies any new issues. Weakness is a little improved. Review of Systems Cardiovascular: Denies: chest pain. Respiratory: Denies: short of breath. Gastrointestinal: Denies: abdominal pain. Hematologic/Endocrine: Denies: bruising, bleeding. All Other Systems: Reviewed and Negative Objective Vital Signs and I&Os Vital Signs Date Time Temp Pulse Resp B/P Pulse O2 O2 Flow FiO2 Ox Delivery Rate 06/18 0659 97.4 74 20 132/60 94 Nasal 2.0L Cannula 06/18 0000 Nasal 2.0L Cannula 06/17 2235 97.7 86 20 130/68 95 Room Air 06/17 1600 92 Nasal 2.0L Cannula 06/17 1416 98.2 84 20 132/72 92 Nasal 2.0L Cannula 06/17 0917 76 128/60 Intake & Output 06/18 1600 06/18 0800 06/18 0000 06/17 1600 06/17 0800 06/17 0000 Intake Total 181.6 990 8121 948 1272 Output Total 1400 141 897 4511 825 Balance -1218.4 115 108 -817 253 Intake, IV 181.6 390 208 208 478 Intake, Oral 600 800 200 600 Output, Urine 1400 810 399 2641 825 Physical Exam: General Appearance: no apparent distress, alert, awake, comfortable Head: right forehead with healed wound Respiratory: normal breath sounds, chest non-tender, no respiratory distress, on 2L NC Cardiovascular: regular rate/rhythm, systolic murmur Gastrointestinal: normal bowel sounds, soft, non-tender, no organomegaly Extremities: no edema, varicose vein Neurologic/Psych: awake, alert, oriented x 3 Skin: normal color, warm/dry Lymphatic: no anterior cervical maame Current Medications: Current Medications Sig/Annabel Start time Last Medication Dose Route Stop Time Status Admin Aspirin 81 MG DAILY 06/18 1000 AC PO Atorvastatin Calcium 10 MG 1700 06/16 1700 AC 06/17 PO 1706 Azithromycin 500 MG Q24H 06/16 1800 AC 06/17 Dextrose/Water 250 ML IV 1849 Budesonide/ 2 PUF BID 06/16 1000 AC 06/17 Formoterol Fumarate INH 211 Ceftriaxone Sodium 1,000 MG Q24H 06/16 1800 AC 06/17 IV 1706 Cholecalciferol 10,000 IU DAILY 06/16 1000 AC 06/17 PO 0917 Citalopram 20 MG DAILY 06/16 1000 AC 06/17 Hydrobromide PO 0917 Docusate Sodium 100 MG DAILY 06/18 1000 AC PO Famotidine 20 MG BID 06/15 2253 AC 06/17 PO 2112 Heparin Sodium/ 25,000 UNIT Q24H 06/16 0145 AC 06/17 Dextrose IV 2348 Dextrose/Water 500 ML Ibuprofen 600 MG Q6P PRN 06/15 2030 AC PO Levothyroxine Sodium 0.05 MG DAILY AC 06/16 0700 AC 06/18 PO 0632 Oxycodone/ 1 TAB Q6P PRN 06/15 2030 AC Acetaminophen PO Oxycodone/ 2 TAB Q6P PRN 06/15 2030 AC 06/18 Acetaminophen PO 0631 Patient Medication 1 ED .STK-MED ONE 06/17 1353 DC Teaching ED 06/17 1354 Polyethylene Glycol 17 GM DAILY 06/18 1000 AC PO Senna 187 MG DAILY 06/18 1000 AC PO Senna 187 MG AT BEDTIME PRN 06/17 2100 DC PO Tamsulosin HCl 0.4 MG DAILY 06/16 1000 AC 06/17 PO 0917 Results Last 24 Hours of Lab Results: Laboratory Tests 06/18 06/17 06/17 0634 2301 1020 Chemistry Sodium Pending Potassium Pending Chloride Pending Carbon Dioxide Pending Anion Gap Pending BUN Pending Creatinine Pending BUN/Creatinine Ratio Pending Coagulation PT Pending INR Pending APTT (25 - 37 SEC) Pending 101 *H 88 H Hematology CBC w Diff Pending WBC Pending RBC Pending Hgb Pending Hct Pending MCV Pending MCH Pending RDW Pending Plt Count Pending MPV Pending PUBS MCHC Pending Assessment/Plan Assessment/Recommendations: Mr Marmolejo is a 76-year-old male significant vascular disease with PVD s/p femoropopliteal bypass (2004), right lower extremity DVT (2004) s/p IVC filter, third-degree AV block/PP p.m., COPD, ANDREY, endarterectomy on right common femoral artery, prostate cancer s/p radiation in March 2016 and tobacco use who presented to the hospital with lower extremity weakness and leg cramping. On admission he was noted to have a RLE DVT, which seems chronic. His presenting symptoms are on the contralateral leg. It is unlikely that his symptoms are related to the thrombosis. It is noted that his INR has been fluctuating since he was taken off anticoaguation for 5 days for his pacemaker procedure. Given the difficulty with his INR, it is reasonable to switch him to a NOAC. NOAC such as apixaban, rivaroxaban, or dabigatran may be good options. Dabigatran has a reversal agent approved which may be reasonable. If cost is an issues, warfarin may be used as it is unclear that he truly failed it. With his history of vascular disease, an addition of an antiplatelet agent may be also reasonable. Recommendations: 1. Can consider switching to NOAC (dabigatran, apixaban, rivarxaban) 2. Monitor for bleeding 3. If cost is an issue and NOAC is unable to be obtained, warfarin may be used again Please call [phone] with any questions or concerns. Problem List: 1. Supratherapeutic INR 2. Anemia 3. DVT (deep venous thrombosis) 4. Pneumonia
[2016-06-18 08:20] LABS: ABSOLUTE BASOPHIL COUNT 0 /CUMM (0.0-0.2); ABSOLUTE EOSINOPHIL COUNT 0.4 /CUMM (0.0-0.7); ABSOLUTE GRANULOCYTE CT 6.1 /CUMM (1.4-6.5); ABSOLUTE LYMPH COUNT 0.8 /CUMM (1.2-3.4); ABSOLUTE MONOCYTE COUNT 0.6 /CUMM (0.10-0.60); BASOPHIL % 0.4 % (0.0-2.0); EOSINOPHIL % 4.8 % (0-5); GRANULOCYTE % 77.7 % (42.2-75.2); HEMATOCRIT 32.2 % (42-52); MEAN CORPUSCULAR HGB CONC 32.7 G/DL (33.0-37.0); MEAN CORPUSCULAR VOLUME 85.6 FL (80.0-94.0); MEAN PLATELET VOLUME 8.2 FL (7.4-10.4); PLATELET COUNT 317 /CUMM (130-400); RBC DISTRIBUTION WIDTH 14.7 % (11.5-14.5); RED BLOOD CELL CT 3.77 /CUMM (4.70-6.10); WHITE BLOOD CELL COUNT 7.8 /CUMM (4.8-10.8)
[2016-06-18 08:49] LABS: PT 36.8 SEC (9.4-12.5); PTT 56 SEC (25-37)
--- NOTE | 2016-06-18 09:05 | Cons- Vascular Surgery ---
General Information and HPI Consulting Request Date of Consult: 06/18/16 Requested By: LIZET MOCTEZUMA MD Reason for Consult: DVT Source of Information: patient, old records Exam Limitations: no limitations History of Present Illness: Mr Marmolejo is a 76-year-old gentleman known to Dr. 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 Symptoms started 3- 4 days ago with what he describes as intermittent stabbing sensation on the medial aspect of both upper thighs, L>R, occasional radiation down both legs, associated right calf tenderness. No rest pain. Allergies/Medications Allergies: Coded Allergies: No Known Allergies (06/08/15) Home Med List: Acetaminophen (Mapap) 500 MG TABLET 2 TAB PO Q6-PRN PRN PAIN (Reported) Cholecalciferol (Vitamin D3) (Vitamin D3) 5,000 UNIT TABLET 1 TAB PO DAILY SUPPLEMENT (Reported) Citalopram Hydrobromide (Citalopram HBr) 20 MG TABLET 1 TAB PO DAILY MENTAL HEALTH (Reported) Cyanocobalamin (Vitamin B-12) 1,000 MCG TABLET 2 TAB PO DAILY Supplement ( Reported) Fluticasone/Vilanterol (Breo Ellipta 200-25 Mcg INH) (Unknown Strength) BLST.W.DEV (Unknown Dose) INH DAILY COPD (Reported) Levothyroxine Sodium 50 MCG TABLET 1 TAB PO DAILY AC THYROID (Reported) Ranitidine HCl (Acid Cellular Phone Repairer) 150 MG TABLET 1 TAB PO BID GERD (Reported) Simvastatin (Simvastatin*) 10 MG TABLET 1 TAB PO QPM CHOLESTEROL (Reported) Tamsulosin HCl (Flomax) 0.4 MG CAP.ER.24H 1 CAP PO DAILY BPH (Reported) Warfarin Sodium (Coumadin) 4 MG TABLET 1 TAB PO AD BLOOD THINNER (Reported) Current Medications: Current Medications Sig/Annabel Start time Last Medication Dose Route Stop Time Status Admin Aspirin 81 MG DAILY 06/18 1000 AC PO Atorvastatin Calcium 10 MG 1700 06/16 1700 AC 06/17 PO 1706 Azithromycin 500 MG Q24H 06/16 1800 AC 06/17 Dextrose/Water 250 ML IV 1849 Budesonide/ 2 PUF BID 03/14 1000 AC 06/17 Formoterol Fumarate INH 2112 Ceftriaxone Sodium 1,000 MG Q24H 06/16 1800 AC 06/17 IV 1706 Cholecalciferol 10,000 IU DAILY 06/16 1000 AC 06/17 PO 0917 Citalopram 20 MG DAILY 06/16 1000 AC 06/17 Hydrobromide PO 0917 Docusate Sodium 100 MG DAILY 06/18 1000 AC PO Famotidine 20 MG BID 06/15 2253 AC 06/17 PO 2112 Heparin Sodium/ 25,000 UNIT Q24H 06/16 0145 AC 06/17 Dextrose IV 2348 Dextrose/Water 500 ML Ibuprofen 600 MG Q6P PRN 06/15 2030 AC PO Levothyroxine Sodium 0.05 MG DAILY AC 06/16 0700 AC 06/18 PO 0632 Oxycodone/ 1 TAB Q6P PRN 06/15 2030 AC Acetaminophen PO Oxycodone/ 2 TAB Q6P PRN 06/15 2030 AC 06/18 Acetaminophen PO 0631 Patient Medication 1 ED .[facility] 06/17 1353 [place] Teaching ED 06/17 1354 Polyethylene Glycol 17 GM DAILY 06/18 1000 AC PO Senna 187 MG DAILY 06/18 1000 AC PO Senna 187 MG AT BEDTIME PRN 06/17 2100 DC PO Tamsulosin HCl 0.4 MG DAILY 06/16 1000 AC 06/17 PO 0917 Past History Medical History Neurological: NONE EENT: NONE Cardiovascular: CAD, hypertension, hyperlipidemia, myocardial infarction, PPM Respiratory: COPD Gastrointestinal: GERD Hepatic: NONE Renal: NONE Musculoskeletal: osteoarthritis Psychiatric: NONE Endocrine: hyperthyroidism Blood Disorders: NONE Cancer(s): prostate cancer Other Medical Hx: Hypothyroidism, hypertension, hyperlipidemia Surgical History Pertinent Surgical History: non-contributory Psychosocial History Smoking Status: Current Everyday Smoker ETOH Use: denies use Illicit Drug Use: denies illicit drug use Review of Systems Review of Systems Constitutional: Reports: no symptoms. Musculoskeletal: Reports: muscle pain. Exam & Diagnostic Data Vital Signs and I&O Vital Signs Date Time Temp Pulse Resp B/P Pulse O2 O2 Flow FiO2 Ox Delivery Rate 06/18 0659 97.4 74 20 132/60 94 Nasal 2.0L Cannula 06/18 0000 Nasal 2.0L Cannula 06/17 2235 97.7 86 20 130/68 95 Room Air 06/17 1600 92 Nasal 2.0L Cannula 03/15 1416 98.2 84 20 132/72 92 Nasal 2.0L Cannula 06/17 0917 76 128/60 Intake & Output 06/18 1600 06/18 0800 06/18 0000 06/17 1600 06/17 0806/17 0000 Intake Total 181.6 990 5404 810 0483 Output Total 1400 183 388 9646 825 Balance -1218.4 115 108 -817 253 Intake, IV 181.6 390 208 208 478 Intake, Oral 600 800 200 600 Output, Urine 1400 195 308 5668 825 Physical Exam General Appearance: well developed/nourished, alert, awake Peripheral Pulses: 2+ femoral (R), 1+ femoral (L) Extremities: normal inspection, normal capillary refill, normal range of motion, no edema Assessment/Plan Assessment/Plan Chronic PVD/DVT has IVCF-? etiology of weakness 1.) No acute vascular intervention needed 2.) Continue anticoagulation 3.) PT/OT eval. 4.) May f/u as outpatient Consult Acknowledgment - Thank you for your consult request.
--- NOTE | 2016-06-18 09:18 | NUR ---
OCCUPATIONAL THERAPY: OT CONSULT RECEIVED AND CHART REVIEWED. PT WITH DVT, OT CX TODAY WILL FOLLOW-UP PENDING VASCULAR SURGERY'S RECOMMENDATIONS. THANK YOU, KELLY
[2016-06-18 14:08] VITALS: BP 122/60
[2016-06-18 22:55] VITALS: BP 114/58
[2016-06-19 06:45] VITALS: BP 138/60
--- NOTE | 2016-06-19 07:26 | PN- Housestaff ---
TRINITY DESAI,SOCORRO 06/19/16 0726: Subjective Follow-up For: RLE DVT Supratherapeutic INR Subjective: Patient seen and examined. He is seen sitting upright in bed resting comfortably. He appears to be in no acute distress. He reports sleeping well last night and has no further questions regarding his care. He admits to feeling well today and is ready to be discharged to short-term rehabilitation, should a bed become available. He admits that the pain in his hands is improved , but still present and not back to baseline. Otherwise he denies any headache, fever, chills, chest pain, palpitations, shortness of breath, cough, nausea, vomiting, diarrhea. No overnight events reported. Review of Systems Constitutional: Reports: see HPI. Objective Last 24 Hrs of Vital Signs/I&O Vital Signs Date Time Temp Pulse Resp B/P Pulse O2 O2 Flow FiO2 Ox Delivery Rate 06/19 0858 Nasal 1.0L Cannula 06/19 0832 Nasal 1.0L Cannula 06/19 0645 97.9 70 20 138/60 94 06/19 0000 Nasal 2.0L Cannula 06/18 2255 98.2 72 18 114/58 94 Room Air 06/18 1831 18 92 Nasal 2.0L Cannula 06/18 1723 Nasal 1.0L Cannula 06/18 1600 94 Nasal 2.0L Cannula 06/18 1408 98.0 80 20 122/60 90 Nasal 1.0L Cannula 06/18 0918 74 132/60 Intake & Output 06/19 1600 06/19 0800 06/19 0000 Intake Total 240 1000 Output Total 925 1476 Balance -685 -476 Intake, Oral 240 1000 Output, Stool 1 Output, Urine 925 1475 Physical Exam General Appearance: Alert, Oriented X3, Cooperative, No Acute Distress Other Physical Findings: General - well developed, well nourished elderly man in no acute distress HEENT - NCAT, PERRL, EOMI, anicteric sclera CVS- S1, S2 w/o m/g/r Resp - bibasilar rhonchi with decreased airflow with scant wheezing, no crackles GI - Soft, nontender, nondistended, normal bowel sounds Neuro - Awake and alert, CN II - XII grossly intact Ext- normal pulses, 1+ bilateral lower extremity edema, mildly tender right lower extremity Current Medications: Current Medications Sig/Annabel Start time Last Medication Dose Route Stop Time Status Admin Amoxicillin/ 875 MG Q12 06/18 1130 AC 06/18 Clavulanate Potassium PO 06/20 2201 2133 Aspirin 81 MG DAILY 06/18 1000 AC 06/18 PO 1254 Atorvastatin Calcium 10 MG 1700 06/16 1700 AC 06/18 PO 1756 Azithromycin 500 MG Q24H 06/16 1800 DC 06/17 Dextrose/Water 250 ML IV 1849 Bisacodyl 10 MG ONCE PRN 06/19 0715 AC AZ Bisacodyl 10 MG ONCE ONE 06/19 0615 DC 06/19 [place] 06/19 0616 0656 Budesonide/ 2 PUF BID 06/16 1000 AC 06/18 Formoterol Fumarate INH 2133 Ceftriaxone Sodium 1,000 MG Q24H 06/16 1800 DC 06/17 IV 1706 Cholecalciferol 10,000 IU DAILY 06/16 1000 AC 06/18 PO 0917 Citalopram 20 MG DAILY 06/16 1000 AC 06/18 Hydrobromide PO 0919 Docusate Sodium 100 MG DAILY 06/18 1000 AC 06/18 PO 0919 Famotidine 20 MG BID 06/15 2253 DC 06/18 PO 0918 Heparin Sodium 5,000 UNIT .STK-MED ONE 06/18 0929 DC (Porcine) IV 06/18 0930 Heparin Sodium 3,250 UNIT ONCE ONE 06/18 0920 DC 06/18 (Porcine) IV 06/18 0921 0947 Heparin Sodium/ 25,000 UNIT Q24H 06/16 0145 DC 06/18 Dextrose IV 0923 Dextrose/Water 500 ML Ibuprofen 600 MG Q6P PRN 06/15 2030 DC PO Levothyroxine Sodium 0.05 MG DAILY AC 06/16 0700 AC 06/19 PO 0650 Naproxen 500 MG Q12 06/18 1118 AC 06/18 PO 2133 Omeprazole 20 MG DAILY AC 06/18 1118 AC 06/19 PO 0650 Oxycodone/ 1 TAB Q6P PRN 06/15 2030 AC 06/18 Acetaminophen PO 1239 Oxycodone/ 2 TAB Q6P PRN 06/15 2030 DC 06/18 Acetaminophen PO 0631 Polyethylene Glycol 17 GM DAILY 06/18 1000 AC 06/18 PO 0918 Senna 187 MG DAILY 06/18 1000 AC 06/18 PO 0918 Tamsulosin HCl 0.4 MG DAILY 06/16 1000 AC 06/18 PO 0918 Last 24 Hrs of Lab/Lizandro Results Last 24 Hrs of Labs/Mics: Laboratory Tests 06/19/16 0810: PT 33.1 H, INR 3.19 H 06/18/16 1530: APTT Cancelled Assessment/Plan Assessment: Patient was titrated off supplemental oxygen as you saturating adequately on room air. He continues to tolerate his oral antibiotics well without any associated adverse reactions. He is to be discharged to short-term rehabilitation this afternoon for further care with instruction to follow-up with his primary care provider after discharge. He is also to is to follow-up with rheumatology as an outpatient for further evaluation of his osteoarthritis and joint pain. Right Lower Extremity Deep Venous Thrombosis / History of DVT Patient seen for evaluation of right lower extremity swelling while taking coumadin for history of previous deep venous thrombosis. Ultrasound demonstrates deep venous thrombosis of right lower extremity. CTA negtive for venous thromboembolism. -General Medicine -Aspirin 81 mg by mouth daily -Vasular Surgery Consult -Heme/Onc consult -Physical Therapy evaluation: Assist of 2, STR -Daily INR, CBC Possible Developing Pneumonia CTA chest and chest x-ray suggestive of possible developing pneumonia. Rapid flu negative. -TRC -Supplemental oxygen -Incentive spirometry -Augmentin 875mg PO Q12H for 5 day total antibotic course -Symbicort -Follow up blood cultures Hyperlipidemia-Atorvastatin 10mg PO Daily Hypothyroidism-Levothyroxine 5mcg PI Daily Benign Prostatic Hypertrophy-Flomax 0.4mg PO Daily Pain Plan-Ibuprofen/Percocet Diet-Heart Healthy Diet DVT PPx-on anticoagulation Code Status-FULL CODE Problem List: 1. Pneumonia Pain Ratin Pain Location: Joints Pain Goal: Remain pain free Pain Plan: As noted in plan Tomorrow's Labs & Rationales: None LIZET MOCTEZUMA MD 06/19/16 2204: Attending MD Review Statement Attending Statement Attending MD Statement: examined this patient, discuss w/resident/PA/OFFSET PROOF PRESS OPERATOR, agreed w/resident/PA/OFFSET PROOF PRESS OPERATOR, discussed with family, reviewed EMR data (avail), discussed with nursing, discussed with case mgmt, amended to note Attending Assessment/Plan: The patient was seen and discussed with the house staff. Agree with the plan of care as outlined. OK to discharge to [facility] today.
--- NOTE | 2016-06-19 07:42 | Patient Discharge Instructions ---
Discharge Instructions General Discharge Information Special Instructions: Start taking Aspirin, Omeprazole, and Naproxen as directed. Stop taking Ranitidine. Take Augmentin as directed, be sure to finish this medication. Continue taking Coumadin as directed, be sure to follow up with your provider who manages this medication. Follow up with your primary care provider after discharge. Acute Coronary Syndrome Inclusion Criteria At DC or during hospital stay patient has or had the following: ACS DIAGNOSIS No Discharge Core Measures Meds if any: Prescribed or Continued at Discharge Meds if any: NOT Prescribed or Continued at Discharge Congestive Heart Failure Inclusion Criteria At DC or during hospital stay patient has or had the following: CHF DIAGNOSIS No Discharge Core Measures Meds if any: Prescribed or Continued at Discharge Meds if any: NOT Prescribed or Continued at Discharge Cerebrovascular accident Inclusion Criteria At DC or during hospital stay patient has or had the following: CVA/TIA Diagnosis No Discharge Core Measures Meds if any: Prescribed or Continued at Discharge Meds if any: NOT Prescribed or Continued at Discharge Venous thromboembolism Inclusion Criteria VTE Diagnosis Yes VTE Type Deep Venous Thrombosis VTE Confirmed by (Test) EXT BILATERAL VENOUS DOPP Discharge Core Measures - Per Current guidelines, there needs to be overlap - treatment for the first 5 days of Warfarin therapy. - If discharged on Warfarin prior to 5 days of - overlap therapy, the patient will need to be - assessed for post discharge needs including - *Post discharge parental anticoagulation - *Warfarin and/or parental anticoagulation education - *Follow up date to check INR post discharge At least 5 days overlap therapy as Inpatient No Meds if any: Prescribed or Continued at Discharge Note: Overlap Therapy is Warfarin and Anticoagulant Meds if any: NOT Prescribed or Continued at Discharge
[2016-06-19 08:56] LABS: PT 33.1 SEC (9.4-12.5)
[2016-06-19] MEDS ORDERED: LISINOPRIL20 M1 PO (10:01)
--- NOTE | 2016-06-19 10:35 | Discharge Summary ---
See Addendum Visit Information Visit Dates Admission Date: 06/15/16 Discharge Date: 06/19/16 Hospital Course Course Attending Physician: LIZET MOCTEZUMA MD Primary Care Physician: MARK HIGHTOWER MD Hospital Course: Mr Marmolejo is a 76-year-old male significant vascular disease with PVD s/p femoropopliteal bypass (2004), right lower extremity DVT (2004) s/p IVC filter, third-degree AV block/PP p.m., COPD, ANDREY, endarterectomy on right common femoral artery, prostate cancer s/p radiation in March 2016 and tobacco use who presented to the hospital with lower extremity weakness and leg cramping. At admission: VS: BP 132/65, HR 77, RR 20, SPO2 96% on 2 LNC, T 98.0 Pertinent labs: H&H 10.7/32.7, sodium 134, potassium 4.6, BUN/CR 14/0.8 INR: 4.46 AST/ALT: 56/74 Ultrasound lower extremity bilateral: DVT affecting a collateral or duplicated femoral vein in the mid to distal thigh. Also there is a nonocclusive thrombus along the posterior wall of the right common femoral vein. No evidence of DVT in the left lower extremity. Within the left popliteal fossa there is a 3.31.61.2 cm Chow's cyst noted. He was trested in the hospital for: Right Lower Extremity Deep Venous Thrombosis: At admission Ultrasound demonstrated deep venous thrombosis of right lower extremity. CTA negtive for PE. Patient was on coumadin, but he did not take it for 5 days in Apr for his pacemaker procedure. It was unclear if the clot was due to coumadin failure as his INR was supratherapeutic at admission. Also it was unclear if his pain was due to the DVT or bad atherisclerosis that the patient had. He was evaluated by hematology who felt that it is unlikely that his symptoms are related to the thrombosis. Since his INR was fluctuating it is reasonable to switch him to a NOAC. NOAC such as apixaban, rivaroxaban, or dabigatran may be good options. Vascular Surgeon saw the patient and recommended that no acute vascular intervention was needed as the clot needed seemed to be old and channalized with good collaterals. Patient was monitored on floor continued. Percocet was used for pain control. Patient worked with PT who recommended STR for stength gaining. Daily INR was checked. Patient was discharged on coumadin for AC as per hematology and vascular surgery and ASA was added. Lisinopril was restarted which was initially held for KATIE which improved with hydration. Developing Pneumonia: CTA chest and chest x-ray suggestive of possible developing pneumonia. Rapid flu was negative. Patient was maintained on TRC, Supplemental oxygen, Incentive spirometry, Symbicort. IV ceftraxone and Azithromycin were used to treat CAP. Patient improved clinically, O2 was tapered off and abx changed to PO augmentin. Blood cultures remained negative. Hyperlipidemia-Atorvastatin 10mg PO Daily Hypothyroidism-Levothyroxine 5mcg PI Daily Benign Prostatic Hypertrophy-Flomax 0.4mg PO Daily Pain Plan-Ibuprofen/Percocet Diet-Heart Healthy Diet DVT PPx-on anticoagulation Code Status-FULL CODE Allergies: Coded Allergies: No Known Allergies (06/08/15) Disposition Summary Disposition Principal Diagnosis: Right Lower Extremity Deep Venous Thrombosis Additional Diagnosis: Community Pneumonia Discharge Disposition: SNF Discharge Instructions General Discharge Information Code Status: Full Code Patient's Diet: heart healthy Patient's Activity: as tolerated Follow-Up Instructions/Appts: Start taking Aspirin, Omeprazole, and Naproxen as directed. Stop taking Ranitidine. Take Augmentin as directed, be sure to finish this medication. Continue taking Coumadin as directed, be sure to follow up with your provider who manages this medication. Follow up with your primary care provider after discharge. Medications at Discharge Discharge Medications: Stop taking the following medications: Ranitidine HCl (Acid Valve Mechanic) 150 MG TABLET ORAL TWICE DAILY Cyanocobalamin (Vitamin B-12) 1,000 MCG TABLET ORAL DAILY Continue taking these medications: Warfarin Sodium (Coumadin) 4 MG TABLET 1 Tablet ORAL As Directed Comments: NOT GIVEN IN HOSPITAL Levothyroxine Sodium (Levothyroxine Sodium) 50 MCG TABLET 1 Tablet ORAL DAILY BEFORE BREAKFAST Comments: Last Taken: 06/19/16 Time: 7:00 AM Tamsulosin HCl (Flomax) 0.4 MG CAP.ER.24H 1 Capsule ORAL DAILY Comments: Last Taken: 06/19/16 Time: 10:00 AM Lisinopril (Lisinopril) 20 MG TABLET 1 Tablet ORAL DAILY Comments: NOT GIVEN IN HOSPITAL Fluticasone/Vilanterol (Breo Ellipta 200-25 Mcg INH) (Unknown Strength) BLST.W.DEV Unknown Dose Inhale through mouth DAILY Comments: NOT GIVEN IN HOSPITAL Cholecalciferol (Vitamin D3) (Vitamin D3) 5,000 UNIT TABLET 1 Tablet ORAL DAILY Comments: Last Taken: 06/19/16 Time: 10:00 AM Acetaminophen (Mapap) 500 MG TABLET 2 Tablet ORAL EVERY 6 HOURS NEEDED as needed for PAIN Comments: NOT GIVEN IN HOSPTIAL Citalopram Hydrobromide (Citalopram HBr) 20 MG TABLET 1 Tablet ORAL DAILY Qty = 90 Comments: Last Taken: 06/19/16 Time: 10:00 AM Simvastatin (Simvastatin*) 10 MG TABLET 1 Tablet ORAL Every night Qty = 90 Comments: Last Taken: 06/18/16 Time: 6:00 PM Cyanocobalamin (Vitamin B-12) 1,000 MCG TABLET 2 Tablet ORAL DAILY Qty = 60 Comments: NOT GIVEN IN HOSPTIAL Start taking the following new medications: Amoxicillin/Clavulanate Potass (Amox-Clav 875-125 MG Tablet) 875 MG-125 MG TABLET 875 Milligram ORAL EVERY 12 HOURS Qty = 3 No Refills Comments: Last Taken: 06/19/16 Time: 10:00 AM Aspirin (Aspirin*) 81 MG TAB.CHEW 81 Milligram ORAL DAILY Qty = 30 No Refills Comments: Last Taken: 06/19/16 Time: 10:00 AM Naproxen (Naproxen) 500 MG TABLET 500 Milligram ORAL EVERY 12 HOURS as needed for JOINT PAIN Qty = 60 No Refills Comments: Last Taken: 06/19/16 Time: 10:00 AM Omeprazole (Omeprazole) 20 MG CAPSULE.DR 20 Milligram ORAL DAILY BEFORE BREAKFAST Qty = 30 No Refills Comments: Last Taken: 06/19/16 Time: 7:00 AM Copies To: LIZET MOCTEZUMA MD; JOSE VILLANUEVA MD; JENNIFER DAMON MD Attending MD Review Statement Documenting Attending: LIZET MOCTEZUMA MD
[2016-06-19] MEDS ORDERED: AMOX-CLAV 875-1 EACH PO (11:21)
[2016-06-19] MEDS ORDERED: ASPIRIN81 M4 PO (11:21)
[2016-06-19] MEDS ORDERED: NAPROXEN500 M2 PO (11:22)
[2016-06-19] MEDS ORDERED: OMEPRAZOLE20 M2 PO (11:22)
[2016-06-19 11:27] VITALS: BP 132/64
[2016-06-19 14:42] VITALS: BP 118/80
== END 2016-06-19 15:20 | DRG 299 ==
LOC: ENRESERVDT → ENRESERVTM → ENRESERV → ERH 09:59 → ERHI 17:29 → ENPENDDIS 17:29 → 2NB 17:29
PROVIDERS: Emergency Medicine; Internal Medicine; Internal Medicine Infectious Disease; Internal Medicine Interventional Cardiology; ADMIT Internal Medicine
DX: I82.411 Acute embolism and thrombosis of right femoral vein (principal); J18.9 Pneumonia, unspecified organism; J44.0 Chronic obstructive pulmonary disease with (acute) lower respiratory infection; G47.33 Obstructive sleep apnea (adult) (pediatric); I10 Essential (primary) hypertension; I73.9 Peripheral vascular disease, unspecified; Z85.46 Personal history of malignant neoplasm of prostate; I25.10 Atherosclerotic heart disease of native coronary artery without angina pectoris; I25.2 Old myocardial infarction; E78.5 Hyperlipidemia, unspecified; K21.9 Gastro-esophageal reflux disease without esophagitis; Z95.0 Presence of cardiac pacemaker; Z86.718 Personal history of other venous thrombosis and embolism; F17.200 Nicotine dependence, unspecified, uncomplicated; N40.0 Benign prostatic hyperplasia without lower urinary tract symptoms
CPT/HCPCS: 2NBSP; 36415; 74177; 81001; 82436; 86431; 87040; 87804; 87804-59; 93005; 93010; 93306; 93970; 97116-GO; 97162-GP; 97165-GO; 97530-GO; J0456; J0696; J1644; J3490; J7060